=== PATIENT | female | born 1970 | race Two or more races ===

== ENCOUNTER 2021-09-08 10:03 | Outpatient (REF) | payer OTHER, SELFPAY ==
--- NOTE | ~2021-09-08 | MM_ITS ---
EXAMINATION: MM SCREENING DIGITAL BREAST TOMOSYNTHESIS, BILATERAL CLINICAL INFORMATION: Screening. Asymptomatic. The lifetime risk of breast cancer based on the Tyrer-Cuzick Model is 7%. COMPARISON: Mammography: 12/16/2018, 11/13/2017, 09/27/2016 TECHNIQUE: Digital breast tomosynthesis is performed in both the craniocaudal and mediolateral oblique views along with computer-aided detection (CAD). Synthesized 2D images are generated from the tomosynthesis. Additional exaggerated right CC view is provided. FINDINGS: There are scattered areas of fibroglandular density (ACR BI-RADS breast composition Category b). Breast tissue composition borders on heterogeneously dense. Parenchymal pattern is similar to prior studies. There is no developing density. No architectural abnormality. No abnormal calcifications on left. The axilla and skin contours are unremarkable. Right breast has fine punctate calcifications circumferentially arranged upper outer quadrant approximately 8.5 cm from nipple. Patient will be recalled for additional imaging. MM/MM tomosynthesis screening BI IMPRESSION: 1. Right: Punctate calcifications upper outer quadrant, possibly related to a cyst or nodule. 2. Left: No mammographic evidence of malignancy. ASSESSMENT: BI-RADS 0: Incomplete - Need Additional Imaging Evaluation RECOMMENDATION: 1. Additional views of the right breast (magnification CC, magnification ML). 2. Targeted ultrasound if warranted after review of the additional views. 3. Radiology department staff will contact the patient for additional imaging. This patient's information was entered into a reminder system with a target due date for their next mammogram.
== END 2021-09-08 10:04 | disposition home or self-care (01) ==
LOC: HO.MAMMO 10:03
PROVIDERS: PCP Student in an Organized Health Care Education/Training Program; Visit Provider Student in an Organized Health Care Education/Training Program
DX: Z12.31 Encounter for screening mammogram for malignant neoplasm of breast (principal)
CPT/HCPCS: 77063; 77067

== ENCOUNTER 2021-09-20 07:51 | Outpatient (REF) | payer OTHER, SELFPAY ==
--- NOTE | ~2021-09-20 | MM_ITS ---
EXAMINATION: MM DIAGNOSTIC DIGITAL MAMMOGRAPHY, RIGHT CLINICAL INFORMATION: Calcifications, COMPARISON: Mammography: 09/08/2021 and studies dating back to 06/28/2010 TECHNIQUE: Digital mammography is performed in the following views: Spot magnification views in craniocaudal and 90-degree mediolateral views. FINDINGS: The breasts are heterogeneously dense, which may obscure small masses (ACR BI-RADS breast composition Category c). There is persistence of a grouping of indeterminate calcifications about the upper outer aspect of the right breast for which stereotactic core biopsy is recommended. Results are discussed with the patient at time of visit. Above recommendation was called to referring provider's office by [facility] patient coordinator. MM/MM added views RT IMPRESSION: Indeterminate grouping of calcifications upper outer aspect of the right breast for which stereotactic core biopsy is recommended. ASSESSMENT: BI-RADS 4: Suspicious. RECOMMENDATION: Stereotactic core biopsy right breast.
== END 2021-09-20 07:52 | disposition home or self-care (01) ==
LOC: HO.MAMMO 07:51
PROVIDERS: Visit Provider Student in an Organized Health Care Education/Training Program
DX: R92.8 Other abnormal and inconclusive findings on diagnostic imaging of breast (principal)
CPT/HCPCS: 77065

== ENCOUNTER → 2021-09-27 08:25 | Outpatient (BNVA) | payer OTHER, SELFPAY | PROVIDERS: PCP Student in an Organized Health Care Education/Training Program; Visit Provider Surgery | DX: R92.1 Mammographic calcification found on diagnostic imaging of breast (principal) ==

== ENCOUNTER 2021-10-02 07:48 | Outpatient (REF) | payer OTHER, SELFPAY ==
--- NOTE | ~2021-10-02 | MM_ITS ---
EXAMINATION: STEREOTACTIC TOMOSYNTHESIS-GUIDED VACUUM-ASSISTED BREAST BIOPSY, RIGHT SPECIMEN RADIOGRAPH, RIGHT POST PROCEDURE DIGITAL MAMMOGRAM, RIGHT CLINICAL INFORMATION: Calcifications central upper outer right breast for tissue sampling. COMPARISON: Mammography 09/20/2021, 09/08/2021, 12/16/2018. TECHNIQUE/PROCEDURE: Informed consent was obtained from the patient after discussion of the benefits, risks, and alternatives to biopsy today. Patient appeared to understand. Gave opportunity for questions. Patient signed consent form. BIOPSY TABLE: [employer] Affirm Prone Biopsy System. LESION: Grouped calcifications central upper outer right breast, possibly vascular. LOCAL ANESTHESIA: 10 mL carbonated 1% lidocaine; 10 mL 1% lidocaine with epinephrine. DERMATOTOMY: Single skin greyson dermatotomy performed. NEEDLE: [employer] 9-gauge vacuum assisted core biopsy device. APPROACH: craniocaudal. TARGETING: Combination of digital breast tomosynthesis and stereotactic digital mammography used for targeting. CORES: 6. CLIP: [employer] T-shaped marker. SPECIMEN RADIOGRAPH: Specimen radiograph is taken in separate room using digital mammography. The index calcifications are in the excised cores. There are over 30 calcifications in the cores POST PROCEDURE UNILATERAL DIGITAL MAMMOGRAM: The post biopsy mammogram is performed in separate room using separate digital mammography equipment from the biopsy procedure. CC and ML views are obtained. There are scattered areas of fibroglandular density (breast composition category: b). The clip marker is in position. The calcifications are markedly decreased at the biopsy site. No gross hematoma. The patient tolerated the procedure well. No immediate complications. Home instructions reviewed with the patient. Final pathology results are pending. MM/MM stereotactic biopsy RT IMPRESSION: 1. Digital tomosynthesis-guided core biopsy right breast with clip placement. 2. Specimen radiograph taken and post procedure mammogram. There is satisfactory positioning of the biopsy clip. 3. Final pathology results pending. An addendum report will be issued.
[2021-10-02] MEDS: Lidocaine HCl 1 % 20 ML VIAL 5 ML SUBCUT (09:23)
[2021-10-02] MEDS: Sodium Bicarbonate 8.4% 50 MEQ/50 ML VIAL SUBCUT (09:25)
== END 2021-10-02 07:49 | disposition home or self-care (01) ==
LOC: HO.MAMMO 07:48
PROVIDERS: Visit Provider Surgery
DX: R92.1 Mammographic calcification found on diagnostic imaging of breast (principal); N62 Hypertrophy of breast; N60.31 Fibrosclerosis of right breast
CPT/HCPCS: 19081; 88305; A4648

== ENCOUNTER → 2021-10-08 12:49 | Outpatient (BNVA) | payer OTHER, SELFPAY | PROVIDERS: PCP Student in an Organized Health Care Education/Training Program; Visit Provider Surgery | DX: R92.1 Mammographic calcification found on diagnostic imaging of breast (principal) ==

== ENCOUNTER 2022-10-05 07:44 | Outpatient (REF) | payer OTHER, SELFPAY ==
--- NOTE | ~2022-10-05 | MM_ITS ---
EXAMINATION: MM SCREENING DIGITAL BREAST TOMOSYNTHESIS, BILATERAL CLINICAL INFORMATION: Screening. Asymptomatic. Benign right stereotactic biopsy 10/02/2021 (benign breast tissue with stromal fibrosis, usual ductal hyperplasia and calcifications. No atypia or malignancy). The lifetime risk of breast cancer based on the Tyrer-Cuzick Model is 7%. COMPARISON: Mammography: 10/02/2021, 09/20/2021, 09/08/2021, 12/16/2018 TECHNIQUE: Digital breast tomosynthesis is performed in both the craniocaudal and mediolateral oblique views along with computer-aided detection (CAD). Synthesized 2D images are generated from the tomosynthesis. FINDINGS: There are scattered areas of fibroglandular density (ACR BI-RADS breast composition Category b). There are no significant masses, abnormal calcifications, or other abnormalities. Parenchymal pattern is similar to prior studies. There is a biopsy clip marker posterior 11:30 right breast. The axilla and skin contours are unremarkable. MM/MM tomosynthesis screening BI IMPRESSION: No mammographic evidence of malignancy. ASSESSMENT: BI-RADS 1: Negative RECOMMENDATION: Routine annual mammography screening. This patient's information was entered into a reminder system with a target due date for their next mammogram.
== END 2022-10-05 07:45 | disposition home or self-care (01) ==
LOC: HO.MAMMO 07:44
PROVIDERS: PCP Student in an Organized Health Care Education/Training Program; Visit Provider Student in an Organized Health Care Education/Training Program
DX: Z12.31 Encounter for screening mammogram for malignant neoplasm of breast (principal)
CPT/HCPCS: 77063; 77067

== ENCOUNTER 2023-04-14 08:15 | Outpatient (REF) | payer OTHER, SELFPAY ==
[2023-04-14 15:04] LABS: Estimated Average Glucose 117 mg/dL; Hemoglobin A1c % 5.7 %
[2023-04-14 15:31] LABS: Alanine Aminotransferase 19 U/L (0-31); Albumin Level 3.7 g/dL (3.5-5.0); Alkaline Phosphatase 73 U/L (39-117); Anion Gap 14 (12-20); Aspartate Amino Transferase 18 U/L (5-31); Bilirubin Direct 0.2 mg/dL (0.0-0.5); Bilirubin Total 0.6 mg/dL (0.0-1.0); Blood Urea Nitrogen 14 mg/dL (9-16); Calcium 9.1 mg/dL (8.4-10.2); Carbon Dioxide 28 mmol/L (22-29); Chloride 102 mmol/L (96-108); Cholesterol 176 mg/dL; Estimated Glomerular Filt Rate > 60; Glucose Fasting 73 mg/dL (60-99); HDL Cholesterol 37 mg/dL; LDL Cholesterol Calculated 88 mg/dl; Potassium 4.4 mmol/L (3.3-5.1); Sodium 140 mmol/L (135-145); Total Protein 6.9 g/dL (6.5-8.0); Triglycerides 257 mg/dL
== END 2023-04-14 08:16 | disposition home or self-care (01) ==
LOC: HO.CHCLDS 08:15
PROVIDERS: Visit Provider Student in an Organized Health Care Education/Training Program
DX: I10 Essential (primary) hypertension (principal); R63.5 Abnormal weight gain; Z71.3 Dietary counseling and surveillance
CPT/HCPCS: 36415; 80048; 80061; 80076; 83036

== ENCOUNTER 2023-10-28 09:56 | Outpatient (REF) | payer OTHER, SELFPAY ==
--- NOTE | ~2023-10-28 | MM_ITS ---
EXAMINATION: MM SCREENING DIGITAL BREAST TOMOSYNTHESIS, BILATERAL CLINICAL INFORMATION: Screening. Asymptomatic. COMPARISON: Mammography: This study is compared with prior exams dating back to 2019. TECHNIQUE: Digital breast tomosynthesis is performed in both the craniocaudal and mediolateral oblique views along with computer-aided detection (CAD). Synthesized 2D images are generated from the tomosynthesis. FINDINGS: There are scattered areas of fibroglandular density (ACR BI-RADS breast composition Category b). There are no significant masses, abnormal calcifications, or other abnormalities. There is a tissue marker in the upper outer quadrant of the right breast from prior benign percutaneous biopsy. MM/MM tomosynthesis screening BI IMPRESSION: No mammographic evidence of malignancy. ASSESSMENT: BI-RADS BI-RADS 2 - Benign Findings RECOMMENDATION: Routine annual mammography screening. 1 year F/U This examination should not preclude the clinical evaluation of a suspicious palpable abnormality. This patient's information was entered into a reminder system with a target due date for their next mammogram.
== END 2023-10-28 09:57 | disposition home or self-care (01) ==
LOC: HO.MAMMO 09:56
PROVIDERS: PCP Student in an Organized Health Care Education/Training Program; Visit Provider Student in an Organized Health Care Education/Training Program
DX: Z12.31 Encounter for screening mammogram for malignant neoplasm of breast (principal)
CPT/HCPCS: 77063; 77067

== ENCOUNTER → 2023-10-28 10:15 | Outpatient (BNV) | payer OTHER, SELFPAY | PROVIDERS: PCP Student in an Organized Health Care Education/Training Program; Visit Provider Radiology Diagnostic Radiology | DX: Z12.31 Encounter for screening mammogram for malignant neoplasm of breast (principal) | CPT/HCPCS: 77063; 77067 ==

== ENCOUNTER 2024-02-04 14:49 | Outpatient (REF) | payer OTHER, SELFPAY ==
--- NOTE | ~2024-02-04 | US_ITS ---
EXAMINATION: US PELVIS CLINICAL INFORMATION: Fibroids LMP: No menses because of IUD COMPARISON: Pelvic ultrasound 11/16/2013 TECHNIQUE: Ultrasound of the pelvis is performed using both transabdominal and transvaginal transducers along with Doppler. Transvaginal imaging is performed due to inadequate visualization transabdominally. Technically limited study due body habitus. FINDINGS: Uterus: The uterus is enlarged and bulky. It is anteverted and measures 8.6 x 5.1 x 8.0 cm. 2 fibroids are appreciated includin.6 x 3.4 x 3.6 cm right fundal 4.4 x 3.4 x 3.9 cm left fundal The endometrial thickness is 1.3 cm The IUD appears in proper position. Adnexa: Right ovary measures 2.6 x 1.8 x 1.9 cm. Volume 4.8 mL. The left ovary is not seen. There is no free fluid within the cul-de-sac. US/US pelvic and transvaginal IMPRESSION: 1. Enlarged bulky fibroid uterus. 2. Normal right ovary. 3. The left ovary is not seen. 4. The IUD appears in proper position.
== END 2024-02-04 14:50 | disposition home or self-care (01) ==
LOC: HO.US 14:49
PROVIDERS: PCP Student in an Organized Health Care Education/Training Program; Visit Provider Advanced Practice Midwife
DX: D21.9 Benign neoplasm of connective and other soft tissue, unspecified (principal)
CPT/HCPCS: 76830; 76856

== ENCOUNTER 2024-03-29 16:15 | Outpatient (REF) | payer OTHER, SELFPAY ==
[2024-03-30 11:53] LABS: CT PCR NOT DETECTED (Not Detect.); NG PCR NOT DETECTED (Not Detect.)
== END 2024-03-29 16:16 | disposition home or self-care (01) ==
LOC: HO.LNP 16:15
PROVIDERS: Visit Provider Advanced Practice Midwife
DX: Z11.3 Encounter for screening for infections with a predominantly sexual mode of transmission (principal)
CPT/HCPCS: 87491; 87591

== ENCOUNTER 2024-04-15 09:30 | Outpatient (REF) | payer OTHER, SELFPAY ==
[2024-04-15 14:17] LABS: Estimated Average Glucose 120 mg/dL; Hemoglobin A1c % 5.8 % (<6.0)
[2024-04-15 14:25] LABS: Alanine Aminotransferase 25 U/L (0-31); Alkaline Phosphatase 86 U/L (39-117); Anion Gap 13 (12-20); Aspartate Amino Transferase 20 U/L (5-31); Bilirubin Direct 0.2 mg/dL (0.0-0.5); Bilirubin Total 0.5 mg/dL (0.0-1.0); Blood Urea Nitrogen 13 mg/dL (9-16); Calcium 9.4 mg/dL (8.4-10.2); Carbon Dioxide 28 mmol/L (22-29); Chloride 103 mmol/L (96-108); Cholesterol 183 mg/dL (<200); Estimated Glomerular Filt Rate > 60; Glucose Random 90 mg/dL (60-115); HDL Cholesterol 35 mg/dL (>40); LDL Cholesterol Calculated 117 mg/dL (<100); Potassium 3.8 mmol/L (3.3-5.1); Sodium 140 mmol/L (135-145); Total Protein 7.1 g/dL (6.5-8.0); Triglycerides 156 mg/dL (<150)
== END 2024-04-15 09:31 | disposition home or self-care (01) ==
LOC: HO.CHCLDS 09:30
PROVIDERS: Visit Provider Student in an Organized Health Care Education/Training Program
DX: I10 Essential (primary) hypertension (principal); E66.01 Morbid (severe) obesity due to excess calories; Z68.42 Body mass index [BMI] 45.0-49.9, adult; Z13.1 Encounter for screening for diabetes mellitus
CPT/HCPCS: 36415; 80048; 80061; 80076; 83036

== ENCOUNTER 2024-06-14 09:00 | Outpatient (AMB) | payer OTHER, SELFPAY ==
--- NOTE | 2024-06-14 09:09 | A.OFFVIS_ITS ---
VS Expanded 06/14/24 09:12 06/15/24 13:30 Height 5 ft 3 in 5 ft 3 in Weight 263 lb 0.183 oz 263 lb BMI 46.6 46.6 Intake Visit Reasons: Class 3 severe obesity/CONFIRMED Allergies lisinopril [LISINOPRIL] Allergy (Unknown, Verified 10/08/21 13:28) UNKNOWN metoprolol [METOPROLOL] Adverse Reaction (Unknown, Verified 10/08/21 13:28) HEADACHES oxycodone [From PERCOCET] Adverse Reaction (Unknown, Verified 10/08/21 13:28) NAUSEA & VOMITING Nutrition Presentation Details: Pt presents for MNT for obesity class 3 . Pt was referred by PCP Sean Hayes Pt reports having increased appetite in the evening. Reports having worked on diet modifications in the past but felt deprived Prefers home made meals Typical meal 8-9 am coffee, 2 sugars, 2 toasts with eggs/ham/cheese and fruit snacks on crackers, water or juice Lunch: rice/beans/chicken, water o juice or soda dinner 8-10 pm rice/beans/chicken physical activity: walking at work 6 hr daily [employer] smokin cig/d since age 16 BS Monitoring Most Recent Diabetes Results: Cholesterol 183 mg/dL (<200) 04/15/24 HDL Cholesterol 35 mg/dL (>40) L 04/15/24 Triglycerides 156 mg/dL (<150) H 04/15/24 Creatinine 0.63 mg/dL (0.5-1.4) 04/15/24 Blood Urea Nitrogen 13 mg/dL (9-16) 04/15/24 Sodium 140 mmol/L (135-145) 04/15/24 Potassium 3.8 mmol/L (3.3-5.1) 04/15/24 Chloride 103 mmol/L (96-108) 04/15/24 Carbon Dioxide 28 mmol/L (22-29) 04/15/24 Calcium 9.4 mg/dL (8.4-10.2) 04/15/24 AST 20 U/L (5-31) 04/15/24 ALT 25 U/L (0-31) 04/15/24 Total Protein 7.1 g/dL (6.5-8.0) 04/15/24 Albumin 4.0 g/dL (3.5-5.0) 04/15/24 EHZ-Kcbbwyz-Sl.Israel Equation Height: 5 ft 3 in Weight: 263 lb Resting Metabolic Rate: 1775.04 Calculated Activity Level: Mild Activity Calories Needed to Maintain Weight: 2440.68 Diagnosis Nutrition problem #1: food nutri know defi As related to (etiology) #1: diagnosis As evidenced by (sign/symptom) #1: high BMI (46.6 (06/22)) [facility] Medical History (Updated 09/27/21 @ 08:57 by Jose David Fontenot MD) Hypertension Morbid obesity Breast calcification, right Surgical History (Updated 09/27/21 @ 08:41 by TYESHA Diego) History of tubal ligation Family History Paternal Aunt Breast cancer Social History (Updated 09/27/21 @ 08:42 by TYESHA Diego) Patient Tobacco Use Status: Current everyday Tobacco user Female Reproductive History Menstrual Age of Menarche: 14 Assessment & Plan Assessment & Plan (1) Morbid obesity: Code(s): E66.01 - Morbid (severe) obesity due to excess calories Category: Medical Plan: Wt: 119.5 Kg ( 06/22 ) Est kcal needs as per MSJ: 2400 (40% carb, 30% protein/fat) Est fluid needs as per 25-30 ml/d: 3500 Est prot per day as per 1 g/kg bw: 119 Recommend fiber intake : 8-10 g per day and gradually increase to 25-28 g per day for women and 35-38 g for men or as tolerated Recommend sodium intake per day : less than 2300 mg Educated patient on: ( R = reviewed V = verbalizes understanding N/R = needs review N/A = not applicable * Food sources of carbohydrate, adequate serving sizes and its role in various health conditions: R * Differences between complex carbohydrates a simple carbohydrates, role of fiber in diet: R * Lean protein sources of foods: R * Differences between types of fats and role in diet (mono on saturated fat fatty acids, saturated fatty acids, trans fats): R V N/R * Food sources of sodium in salt and healthy modifications for heart health in kidney health: R V R/V * Vitamins and minerals: R V N/R * Healthy plate method concept: R * Physical activity: Benefits a precaution: R V N/R * Dietary prevention of Hyperglycemia: R Patient Instructions: Work on reduction of sugars in beverage (in coffee, sodas, juices ) Have sandwich with lettuce/tomato as your 9 pm meal for now Coding Level of Care Code Nutr Indiv Intake (12107) Diagnoses Morbid obesity E66.01 Time Spent (min) 30
[2024-06-14 09:12] VITALS: BMI 46.6
[2024-06-15 13:30] VITALS: BMI 46.6
== END 2024-06-14 10:09 | disposition home or self-care (01) ==
PROVIDERS: PCP Student in an Organized Health Care Education/Training Program; Visit Provider Dietitian, Registered
DX: E66.01 Morbid (severe) obesity due to excess calories (principal)

== ENCOUNTER → 2024-06-14 09:00 | Outpatient (BNVA) | payer OTHER, SELFPAY | PROVIDERS: PCP Student in an Organized Health Care Education/Training Program; Visit Provider Dietitian, Registered | DX: E66.01 Morbid (severe) obesity due to excess calories (principal); Z68.42 Body mass index [BMI] 45.0-49.9, adult; Z71.3 Dietary counseling and surveillance | CPT/HCPCS: 97802 ==

== ENCOUNTER 2024-07-26 08:24 | Outpatient (AMB) | payer OTHER, SELFPAY ==
--- NOTE | 2024-07-26 08:33 | A.OFFVIS_ITS ---
VS Expanded 07/26/24 08:35 Height 5 ft 3 in Weight 258 lb 3.2 oz BMI 45.7 Intake Visit Reasons: Severe obesity/CONFIRMED Allergies lisinopril [LISINOPRIL] Allergy (Unknown, Verified 10/08/21 13:28) UNKNOWN metoprolol [METOPROLOL] Adverse Reaction (Unknown, Verified 10/08/21 13:28) HEADACHES oxycodone [From PERCOCET] Adverse Reaction (Unknown, Verified 10/08/21 13:28) NAUSEA & VOMITING Nutrition Presentation Details: Pt presents for MNT f/u for obesity Pt is working on diet modifications reducing on sugars from beverages physical activity: 5 days a week walking (additional to walking at work, medical assistance/cleaning) Reports working on following healthy plate method at dinner, incorporating some fiber rich foods , trying new foods. Pt is asking for Wegovy prescription. The Pt was advised that prescriptions are provided by doctor's and Pt will need a referral to the crime data specialist for further evaluation. BS Monitoring Most Recent Diabetes Results: Cholesterol 183 mg/dL (<200) 04/15/24 HDL Cholesterol 35 mg/dL (>40) L 04/15/24 Triglycerides 156 mg/dL (<150) H 04/15/24 Creatinine 0.63 mg/dL (0.5-1.4) 04/15/24 Blood Urea Nitrogen 13 mg/dL (9-16) 04/15/24 Sodium 140 mmol/L (135-145) 04/15/24 Potassium 3.8 mmol/L (3.3-5.1) 04/15/24 Chloride 103 mmol/L (96-108) 04/15/24 Carbon Dioxide 28 mmol/L (22-29) 04/15/24 Calcium 9.4 mg/dL (8.4-10.2) 04/15/24 AST 20 U/L (5-31) 04/15/24 ALT 25 U/L (0-31) 04/15/24 Total Protein 7.1 g/dL (6.5-8.0) 04/15/24 Albumin 4.0 g/dL (3.5-5.0) 04/15/24 [facility] Medical History (Updated 09/27/21 @ 08:57 by Jose David Fontenot MD) Hypertension Morbid obesity Breast calcification, right Surgical History (Updated 09/27/21 @ 08:41 by TYESHA Diego) History of tubal ligation Family History Paternal Aunt Breast cancer Social History (Updated 09/27/21 @ 08:42 by TYESHA iDego) Patient Tobacco Use Status: Current everyday Tobacco user Female Reproductive History Menstrual Age of Menarche: 14 Assessment & Plan Assessment & Plan (1) Morbid obesity: Code(s): E66.01 - Morbid (severe) obesity due to excess calories Category: Medical Plan: Wt: 119.5 Kg ( 06/22 ), 117 (07/22) Est kcal needs as per MSJ: 2400 (40% carb, 30% protein/fat) Est fluid needs as per 25-30 ml/d: 3500 Est prot per day as per 1 g/kg bw: 119 Recommend fiber intake : 8-10 g per day and gradually increase to 25-28 g per day for women and 35-38 g for men or as tolerated Recommend sodium intake per day : less than 2300 mg Educated patient on: ( R = reviewed V = verbalizes understanding N/R = needs review N/A = not applicable * Food sources of carbohydrate, adequate serving sizes and its role in various health conditions: R * Differences between complex carbohydrates a simple carbohydrates, role of fiber in diet: R * Lean protein sources of foods: R * Differences between types of fats and role in diet (mono on saturated fat fatty acids, saturated fatty acids, trans fats): R V N/R * Food sources of sodium in salt and healthy modifications for heart health in kidney health: R V R/V * Vitamins and minerals: R V N/R * Healthy plate method concept: R * Physical activity: Benefits a precaution: R * Dietary prevention of Hyperglycemia: R Patient Instructions: Increase in fiber rich foods (add broccoli/spinach to the rice , add carrots, mushrooms to sauces and soups as examples ) Recommend referral to crime data specialist for further evaluation for obesity. Coding Level of Care Code Nutr Indiv Subseq (75866) Diagnoses Morbid obesity E66.01 Time Spent (min) 30
[2024-07-26 08:35] VITALS: BMI 45.7
== END 2024-07-26 09:07 | disposition home or self-care (01) ==
PROVIDERS: PCP Student in an Organized Health Care Education/Training Program; Visit Provider Dietitian, Registered
DX: E66.01 Morbid (severe) obesity due to excess calories (principal)

== ENCOUNTER → 2024-07-26 08:24 | Outpatient (BNVA) | payer OTHER, SELFPAY | PROVIDERS: PCP Student in an Organized Health Care Education/Training Program; Visit Provider Dietitian, Registered | DX: E66.01 Morbid (severe) obesity due to excess calories (principal); Z68.42 Body mass index [BMI] 45.0-49.9, adult; Z71.3 Dietary counseling and surveillance | CPT/HCPCS: 97803 ==

== ENCOUNTER 2024-11-05 07:33 | Outpatient (REF) | payer OTHER, SELFPAY ==
--- OUTSIDE RECORDS SUMMARY | 2024-11-05 07:35 | XMS_ITS | Encounter Summary ---
Author Organization [employer] Address [address] [place] [address] Care Team Providers Care Post Tensioning Ironworker Helper Name Role Phone Tona Hayes MD Primary Care Provider [phone] Encounter Details Date Type Department Care Team ([facility] st Contact Info) Description 05/27/2023 Orders Only [facility] [address] [place] [address] [phone] Sanjiv Paez MD [address] [place] [address] [phone] Social History Tobacco Use Types Packs/Day Years Used Date Smoking Tobacco: Every Day Cigarettes 0.5 0.5 Passive Smoke Exposure: Past Smokeless Tobacco: Never Alcohol Use Standard Drinks/Week Comments Defer 0 (1 standard drink = 0.6 oz pur e alcohol) Depression Answer Date Recorded Patient Health Questionnaire-9 Score 0 04/07/2023 Depression Answer Date Recorded Patient Health Questionnaire-2 Score 0 04/07/2023 Comments Unknown Sex and Gender Information Value Date Recorded Sex Assigned at Female 07/29/2022 10:15 AM EDT Legal Sex Female 10:15 AM EDT Gender Identity Female 07/29/2022 10:15 AM EDT Sexual Orientation Straight 07/29/2022 10 :15 AM EDT documented as of this encounter Plan of Treatment Not on file documented as of this encounter Visit Diagnoses Not on filedocumented in this encounter Additional Health Concerns Assessment Noted Time PHQ-9 Depression Total Score: 0 04/07/20 23 9:14 AM EDT documented as of this encounter Care Teams Post Tensioning Ironworker Helper Relationship Specialty Start Date End Date Tona Hayes MD [address] [place] [id number] PCP - General Family Medicine 08/19/12 documented as of this encounter
--- OUTSIDE RECORDS SUMMARY | 2024-11-05 07:35 | XMS_ITS | Encounter Summary ---
Author Organization [employer] Address [address] [place] [address] Care Team Providers Care Train Crew Member Name Role Phone Tona Hayes MD Primary Care Provider [phone] Reason for Visit * Reason Comments Med Refill Encounter Details Date Type Department Care Team (Late st Contact Info) Description 09/02/2022 Refill [facility] [address], [place] [phone] Tona Hayes MD [address] [place], [place] [phone] Social History Tobacco Use Types Packs/Day Years Used Date Smoking Tobacco: Never Assessed Comments Unknown Sex and Gender Information Value Date Recorded Sex Assigned at Female 07/29/2022 10:15 AM EDT Legal Sex Female 10:15 AM EDT Gender Identity Female 07/29/2022 10:15 AM EDT Sexual Orientation Straight 07/29/2022 10 :15 AM EDT COVID-19 Exposure Response Date Recorded In the last 10 days, have yo u been in contact with someone who was confirmed or suspected to have Coronavirus/COVID-19? No / Unsure 08/30/2022 2:14 PM EST documented as of this encounter Plan of Treatment Not on file documented as of this encounter Visit Diagnoses Not on filedocumented in this encounter Care Teams Train Crew Member Relationship Specialty Start Date End Date Tona Hayes MD [address] [place] [phone] PCP - General Family Medicine 08/19/12 documented as of this encounter
--- OUTSIDE RECORDS SUMMARY | 2024-11-05 07:35 | XMS_ITS | Encounter Summary ---
Author Organization [employer] Address [address] [place] [address] Care Team Providers Care Character Impersonator Name Role Phone Tona Hayes MD Primary Care Provider Reason for Visit * Reason Onset Date Comments Prior Authorization 10/08/2024 Encounter Details Date Type Department Care Team ([facility] st Contact Info) Description 10/08/2024 Telephone [facility] PEDS [address] [place] [address] Tona Hayes MD [address] [place] [address] Prior Authorization Social History Tobacco Use Types Packs/Day Years Used Date Smoking Tobacco: Every Day Cigarettes 0.5 0.5 Passive Smoke Exposure: Current Smokeless Tobacco: Never Alcohol Use Standard Drinks/Week Comments Defer 0 (1 standard drink = 0.6 oz pur e alcohol) Alcohol Answer Date Recorded Frequency of Alcohol Consumption Not on file 04/15/2024 Average Number of Drinks Not on file 024 Frequency of Binge Drinking Not on file 03/29 Score 0 04/15/2024 Depression Answer Date Recorded Patient Health Questionnaire-9 Score 0 04/15/2024 Patient Health Questionnaire-9 Score 0 04/15/2024 Last PHQ-9: Questionnaire Data Not on file 0 04/15/2024 Housing Stability Answer Date Recorded What is your housing situation today? I have balwinder mclain 04/09/[address] you li ve. Do you have problems with any of the following? None of the above 04/09/2024 Food Insecurity Answer Date Recorded Within the past 12 months, y ou worried that your food would run out before you got money to buy more: Never True 04/09/2024 Within the past 12 months,th e food you bought just didn't last and you didn't have enough money to get more: Never True 08/2024 Transportation Answer Date Recorded In the past 12 months, has l ack of transportation kept you from medical appts, meetings, work or from getting things needed for daily living? No 04/09/2024 Utilities Answer Date Recorded In the past 12 months, has t he electric, gas, oil or water company threatened to shut off services in your home? No 04/09/2024 Depression Answer Date Recorded Patient Health Questionnaire-2 Score 0 04/15/2024 Internet Access Answer Date Recorded Internet Access Q1 Yes 05/31/2024 Internet Access Q2 Not on file 05/31/2024 Comments No Sex and Gender Information Value Date Recorded Sex Assigned at Female 07/29/2022 10:15 AM EDT Legal Sex Female 10:15 AM EDT Gender Identity Female 07/29/2022 10:15 AM EDT Sexual Orientation Straight 07/29/2022 10 :15 AM EDT documented as of this encounter Miscellaneous Notes * Telephone Encounter - Khushboo Connolly LPN - 10/08/2024 11:29 AM EST Pa generated and faxed to pt insurance ----- Message from Maritza Chowdhury sent at 10/07/2024 3:12 PM EST ----- Please generate PA for john Nunez! * Telephone Encounter - Khushboo Connolly LPN - 10/08/2024 11:29 AM EST ----- Message from Maritza Chowdhury sent at 10/07/2024 3:12 PM EST ----- Please generate PA for Enrique, thanks! documented in this encounter Plan of Treatment Not on file documented as of this encounter Visit Diagnoses Not on filedocumented in this encounter Additional Health Concerns Assessment Noted Time PHQ-9 Depression Total Score: 0 04/15/20 24 9:20 AM EDT documented as of this encounter Care Teams Character Impersonator Relationship Specialty Start Date End Date Tona Hayes MD [address] [place] [id number] PCP - General Family Medicine 08/19/12 documented as of this encounter
--- OUTSIDE RECORDS SUMMARY | 2024-11-05 07:35 | XMS_ITS | Clinical Summary ---
Author Organization [employer] Address [address] [facility] 7[address] [place] [address] Care Team Providers Care Drupal Architect Name Role Phone Tona Hayes MD Primary Care Provider [phone] Allergies Active Allergy Reactions Criticality Noted Date Comments Acetaminophen 03/26/2012 Other reaction(s): can not tolerate Lisinopril Cough 11/23/2014 Metoprolol 11/23/2014 Urofollitropin 01/21/2023 Oxycodone 03/26/2012 Other reaction(s): can not tolerate Oxycodone-Acetaminophen 01/21/2023 Medications hydrOXYzine HCl (Atarax) 25 MG tabletIndication s:Anxiety Take 1 tablet (25 mg) by mouth if needed at bedtime for itching. 30 tablet 3 2 Active fluticasone (Flonase Allergy Relief) 50 MCG/ACT nasal sprayIndications :Nasal congestion Administer 1 spray into each nostril in the morning. Shake gently. Before first use, prime pump. After use, clean tip and replace cap. 16 g 3 3 Active triamcinolone (Nasacort Allergy 24HR) 55 MCG/ACT nasal inhaler use in each nostril BID 0 Active fluticasone (Flovent HFA) 110 MCG/ACT inhaler inhale 2 puff by inhalation route 2 times every day 12 g 11 3 Active albuterol 108 (90 Base) MCG/ACT inhaler Inhale 2 puffs every 4 (four) hours if needed for wheezing or shortness of breath. 18 g 11 3 Active Oyster Shell Calcium + D3 500-10 MG-MCG tabletIndication s:Osteoporosis, unspecified osteoporosis type, unspecified pathological fracture presence TAKE 1 TABLET BY MOUTH EVERY DAY 90 tablet 1 3 Active cyclobenzaprine (Flexeril) 5 MG tablet Take 1 tablet (5 mg) by mouth if needed in the morning, at noon, and at bedtime for muscle spasms for up to 40 doses. 40 tablet 3 Active sertraline (Zoloft) 50 MG tablet Take 1 tablet (50 mg) by mouth in the morning. 90 tablet 3 4 Active triamterene-hydr ochlorothiazide (Maxzide-25) 37.5-25 MG tablet Take 1 tablet by mouth in the morning. 90 tablet 3 4 Active omeprazole (PriLOSEC) [address] capsule Take 1 capsule (20 mg) by mouth before breakfast. Do not crush or chew. 90 capsule 3 4 Active ibuprofen 800 MG tabletIndication s:Pain, unspecified TAKE 1 TABLET BY MOUTH THREE TIMES DAILY WITH FOOD NEEDED FOR PAIN 30 tablet 3 4 Active loratadine (Claritin) 10 MG tablet TAKE 1 TABLET BY MOUTH DAILY IN THE MORNING 90 tablet 4 Active telmisartan (MIcarDIS) 20 MG tablet TAKE 1 TABLET BY MOUTH EVERY MORNING 90 tablet 3 5 Active Tirzepatide-Weig ht Management (Zepbound) 2.5 MG/0.5ML solution auto-injectorInd ications:Obesity Inject 0.5 mL (2.5 mg) under the skin 1 (one) time per week. 2 mL 2 5 025 Active Semaglutide-Weig ht Management (Wegovy) 0.25 MG/0.5ML solution auto-injector Use once a week 0.5 mL 3 4 025 Discontin ued(Thera py completed ) predniSONE (Deltasone) 20 MG tablet Take 2 tablets (40 mg) by mouth Once per day for 5 days. 10 tablet 4 025 Discontin ued(Thera py completed ) Active Problems Problem Noted Date Diagnosed Date Obstructive sleep apnea 10/07/2024 Overview (10/07/2024): - 09/16/24 -sleep study revealed a severe degree of obstructive sleep apnea. Prediabetes 10/07/2024 Overview (10/07/2024): Lab Results Component Value Date HGBA1C 5.8 04/15/2024 HGBA1C 5.7 04/14/2023 HGBA1C 5.7 (H) 06/27/2021 -Encouraged lifestyle interventions Obesity 10/07/2024 Assessment & Plan (10/07/2024 3:07 PM EST): Reviewed indications for pharmacotherapy with patient, which is treatment for person w/ obesity or a patient with a BMI > 27 w/ CV risk factors who have failed lifestyle modifications alone. These are always prescribed in combination with ongoing lifestyle modification; and will be titrated up from the lowest dose Comorbidities: LEONID, prediabetes, hypertension Plan: start Zepbound. Reviewed med safety and side effects. No contraindications identified. 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 Gastroesophageal reflux disease 11/23/2014 Benign hypertension 08/19/2012 Assessment & Plan (10/07/2024 3:12 PM EST): - Elevated in office, although reports has not taken blood pressure medications yet - Continue current therapy - Follow-up if home blood pressure readings are elevated -Smoking cessation advised Tobacco dependence syndrome 08/19/2012 Depressive disorder 08/19/2012 Encounters Date Type Department Care Team Description 11/04/2024 Refill [facility] [address] [facility] [place] [address] Tona Hayes MD Osteoporosis, unspecified osteoporosis type, unspecified pathological fracture presence 10/08/2024 Telephone [facility] [address] [place] [address] Tona Hayes MD Prior Authorization 10/04/2024 2:30 PM EST Office Visit [facility] [address] [facility] [place] [address] Maritza Chowdhury, BILLY Class 3 severe obesity with serious comorbidity and body mass index (BMI) of 45.0 to 49.9 in adult, unspecified obesity type (CMS/[facility]) (Primary Dx); Obstructive sleep apnea; Prediabetes; Benign hypertension 10/04/2024 Travel 09/30/2024 Refill [facility] [address] [place] [address] Tona Hayes MD 09/24/2024 Orders Only [facility] [address] [place] [address] Sanjiv Paez MD 09/16/2024 1:00 PM EST Office Visit [facility] ADULT DENT[facility] [address] [place] [address] Estevan, Griselda Dental plaque (Primary Dx); Dental calculus 08/23/2024 Refill [facility] [address] [place] [address] Tona Hayes MD 08/20/2024 1:30 PM EST Office Visit [facility] [address] [place] [address] Eliecer, Nabila, OD Retinal hemorrhage of right eye (Primary Dx); Hypertensive retinopathy of both eyes 08/20/2024 Travel 08/16/2024 Refill [facility] [address] [place], [place] [phone] Tona Hayes MD Pain, unspecified from Last 3 Months Immunizations Name Administration Dates Next Due HepB-CpG 07/04/2023,06/03/2023 Influenza Injectable Quadriv alant Preservative Free IIV4 MDCK 06/19/2023,06/13/2022,06/14/2021,2019 Influenza injectable quadriv alent IIV4 with preservative 06/09/2019,06/10/2018 Influenza, IIV3, injectable 06/10/2012 Influenza, seasonal, injecta ble, preservative free 06/10/2024 Pfizer Covid-19 Vaccine 12+ 06/27/2023 Pfizer Covid-19 Vaccine 12+ Bivalent 08/30/2022 TD (adult), 2 Lf tetanus tox oid, preservative free, adsorbed 06/28/2008 Tdap 10/30/2021,10/29/2011 Zoster, Recombinant 08/05/2023,06/03/2023 Family History Medical History Relation Name Comments Breast cancer Father's Sister Diabetes Mother Lung cancer Mother's Sister Relation Name Status Comments Father's Sister Mother Mother's Sister Social History Tobacco Use Types Packs/Day Years Used Date Smoking Tobacco: Every Day Cigarettes 0.5 0.5 Passive Smoke Exposure: Current Smokeless Tobacco: Never Tobacco Cessation:Ready to Q uit: Not Asked; Counseling Given: Not Answered Alcohol Use Standard Drinks/Week Comments Defer 0 [...] Orientation Straight 07/29/2022 10 :15 AM EDT Last Filed Vital Signs Vital Sign Reading Time Taken Comments Blood Pressure 141/82 10/04/2024 1:53 PM EST Pulse 74 10/04/2024 1:53 PM EST Temperature 37.1 ??C (98.8 ??F) 10/04/2024 1:53 PM ES T Respiratory Rate 22 10/04/2024 1:53 PM EST Oxygen Saturation 97% 10/04/2024 1:53 PM EST Inhaled Oxygen Concentration - - Weight 120 kg (264 lb 6 oz) 10/04/2024 1:[address] Height 160 cm (5' 3 ) 10/04/2024 1:53 PM EST Body Mass Index 46.83 10/04/2024 1:53 PM EST Plan of Treatment Health Maintenance Due Date Last Done Comments CT Colonography 1972 Colonoscopy 1972 Colorectal Cancer Screening 1972 FIT DNA/Cologuard 1972 FIT 1972 FOBT 1972 HIV Screening 1972 Sigmoidoscopy 1972 Family Planning (PISQ) 1987 Hepatitis C Screening 1990 Hepatitis A Vaccines (1 of 2 - Risk 2-dose series) 1991 Pneumococcal Vaccine: 50+ Years (1 of 2 - PCV) 1991 Dental Prophylaxis 03/05/2014 09/03/2013 Dental Oral Exam 04/22/2014 10/22/2013, 07/10/2012 Dental X-Ray: Bitewings 09/04/2014 09/03/2013, 05/19 Dental X-Ray: Full Mouth 05/20/2015 05/19/2012 COVID-19 Vaccine ( season) 2024 06/27/2023, 08/30/2022, 08/17/2021, Additional history exists SDOH Screening 04/09/2025 04/09/2024 Alcohol/Substance Use Screening 04/15/2025 04/15/2024 Depression Screening 04/15/2025 04/15/2024, 04/15/20 24 Diabetes: Hemoglobin A1C 04/15/2025 024, 04/14/2023, 06/27/2021 Tobacco Screening 10/04/2025 10/04/2024 Mammogram 10/28/2025 10/28/2023, 03/2023, 09/20/2021, Additional history exists Cervical Cancer Screening 01/22/2028 HPV/Cotest 01/22/2028 01/21/2023, 05/18/2019 Pap Smear 01/22/2028 01/21/2023, 05/18/2019 Lipid Panel 04/15/2029 04/15/2024, 03/29, 04/17/2022, Additional history exists DTaP/Tdap/Td Vaccines (3 - Td or Tdap) 10/30/2031 10/30/2021, 10/29/2011, 06/28/2008 RSV Patients and Patients Aged 60 years or older (1 - 1-dose 75+ series) 2047 Hepatitis B Vaccines Completed 07/04/2023, 06/03/20 Zoster Vaccines Completed 08/05/2023, 06/03/2023 Influenza Vaccine Completed 06/10/2024, , 06/13/2022, Additional history exists HIB Vaccines Aged Out No longer eligi ble based on patient's age to complete this topic HPV Vaccines Aged Out No longer eligi ble based on patient's age to complete this topic IPV Vaccines Aged Out No longer eligi ble based on patient's age to complete this topic Meningococcal Vaccine Aged Out No erik essie eligible based on patient's age to complete this topic RSV under 20 months Aged Out No longe r eligible based on patient's age to complete this topic Rotavirus Vaccines Aged Out No longer eligible based on patient's age to complete this topic Procedures Procedure Name Priority Date/Time Associated Diagnosis Comments EMPLOYEE ADULT PROPHYLAXIS Routine 09/16/2024 1:00 PM EST Dental plaque Dental calculus FUNDUS PHOTOS - OU - BOTH EYES Routine 08/20/2024 4:22 PM EST Hypertensive retinopathy of both eyes HEMOGLOBIN A1C Routine 04/15/2024 12:00 AM EDT Benign hypertension Class 3 severe obesity with serious comorbidity and body mass index (BMI) of 45.0 to 49.9 in adult, unspecified obesity type ([facility]) LIPID PANEL, STANDARD Routine 04/15/2024 12:00 AM EDT Benign hypertension Class 3 severe obesity with serious comorbidity and body mass index (BMI) of 45.0 to 49.9 in adult, unspecified obesity type (CMS/HCC) BI MAMMOGRAM SCREENING TOMOSYNTHESIS BILATERAL Routine 10/28/2023 10:21 AM EST IMAGE-GUIDED PAP W/AGE BASED SCR PROTOCOLS Routine 01/21/2023 9:43 AM EDT Cervical cancer screening PERIODIC ORAL EVALUATION - ESTABLISHED PATIENT Routine 10/22/2013 12:00 AM EST PROPHYLAXIS - ADULT Routine 09/03/2013 1 2:00 AM EST BITEWINGS - 4 RADIOGRAPHIC IMAGES Routine 09/03/2013 12:00 AM EST DIAGNOSTIC - DIAGNOSTIC IMAGING - INTRAORAL - COMPREHENSIVE SERIES OF RADIOGRAPHIC IMAGES Routine 05/19/2012 12:00 AM EDT from Last 3 Months or Most Recently Relevant to Health Maintenance Results * Fundus Photos - OU - Both Eyes (08/20/2024 4:22 PM EST) Kandice EliecerNabila, OD - 08/20/2024 4:22 PM EST Right Eye Progression has improved. Disc findings include normal observations. Macula findings include normal observations. Vessel findings include tortuous vessels. Periphery findings include normal observations. Left Eye Progression has been stable. Disc findings include normal observations. Macula findings include normal observations. Vessel findings include tortuous vessels. Periphery findings include normal observations. Notes Impression/Plan: Resolution of heme in right eye. Stable hypertensive changes in both eyes. Will monitor at his next exam in 04/2025. us Nabila Gonzáles OD OPHTH PHOTOGRAPHY Edited Resu lt - Final * Hemoglobin A1c (04/15/2024 12:00 AM EDT) Hemoglobin A1c 5.8 <6.0 % [facility] Comment:Hemoglobin A1C Refer ence Range Adults: 4.8 - 6.0 % Non diabetic: < 6.0 % Goal: < 7.0 %Additional Action Suggested: > 8.0 %Note: Hemoglobin A1c results are invalid for patients with abnormal amounts of HbF. Blood transfusions may impact the HbA1c concentration in the patient sample. Estimated Average Glucose 120 mg/dL [facility] Comment:eAG = Estimated ave rage glucose which is %A1C expressed asaverage glucose, using the formula of the [id number] Glucose study (ADAG), Diabetes Care, Vol.31,#8,Apr. 2007 Blood Venous blood specimen / Unknown 04/15/2024 04/15/2024 us Tona Hayes MD LAB BLOOD ORDERABLES Final Resul t Performing Organization Address City/[facility] Co de Phone Number [facility] [address] [place] [address] [phone] * (ABNORMAL) Lipid Panel, Standard (04/15/2024 12:00 AM EDT) Triglycerides 156(H) <150 mg/dL [facility] Comment:Desirable Triglyceri de: less than 150 mg/dLBorderline High Triglyceride 150-199 mg/dLHigh Triglyceride: 200-499 mg/dLVery High Triglyceride: greater than or equal to 5OO mg/dL Cholesterol 183 <200 mg/dL [facility] Comment:Desirable Cholestero l: less than 200 mg/dLBorderline High Cholesterol: 200-239 mg/dLHigh Cholesterol: greater than 239 mg/dL LDL Cholesterol Calculated 117(H) <100 mg/dL [facility] Comment:Desirable LDL: less than 100 mg/dLNear Optimal/Above Optimal LDL: 110- 129 mg/dLBorderline High LDL: 130-159 mg/dLHigh LDL: 160-189 mg/dLVery High LDL: greater than or equal to 190 mg/dL HDL Cholesterol 35(L) >40 mg/dL [facility] Comment:Desirable HDL: great er than 40 mg/dL Note: This HDL assay may give artificially low results in patients with liver disease. Blood Venous blood specimen / Unknown 04/15/2024 04/15/2024 us Tona Hayes MD LAB BLOOD ORDERABLES Final Resul t [facility] [address] [place] [phone] [phone] * BI Mammogram Screening Tomosynthesis Bilateral (10/28/2023 10:21 AM EST) Anatomical Region Laterality Modality Breast Bilateral Mammography 10/28/2023 10:2 1 AM EST Narrative 11/20/2023 6:45 AM EST ? [facility] [place] ? [address] ?[place] [address] ? Mammography Report ? Signed ? Patient: Patrice,Chanel ?MR#: [id number] ?? [id number] ? : 1970 ?Acct:[id number] ? Age/Sex: 53 / F ?ADM Date: 10/28/23 ? Loc: HO.MAMMO ? Attending Dr: Tona S Freddy MD ? Ordering Physician: Freddy,Tona Starr MD ?Results: 2Benign ?? Findings ? Date of Service: 10/28/23 ?Follow Up: 1 Year From Orig ?? inal Mammogram ? Procedure(s): MM tomosynthesis screening BI ?? Accession Number(s): [id number] ? cc: Tona Hayes MD ? EXAMINATION: ?? MM SCREENING DIGITAL BREAST TOMOSYNTHESIS, BILATERAL ? CLINICAL INFORMATION: ? Screening. Asymptomatic. ? COMPARISON: ?? Mammography: This study is compared with prior exams dating back to ?? 2019. ? TECHNIQUE: ?? Digital breast tomosynthesis is performed in both the craniocaudal and ?? mediolateral oblique views along with computer-aided detection (CAD). ?? Synthesized 2D images are generated from the tomosynthesis. ? FINDINGS: ?? There are scattered areas of fibroglandular density (ACR BI-RADS breast ?? composition Category b). ? There are no significant masses, abnormal calcifications, or other ?? abnormalities. ? There is a tissue marker in the upper outer quadrant of the right ?? breast from prior benign percutaneous biopsy. ? MM/MM tomosynthesis screening BI ?? IMPRESSION: ?? No mammographic evidence of malignancy. ? ASSESSMENT: ? BI-RADS BI-RADS 2 - Benign Findings ? RECOMMENDATION: ?? Routine annual mammography screening. ? 1 year F/U ? This examination should not preclude the clinical evaluation of a ?? suspicious palpable abnormality. ? This patient's information was entered into a reminder system with a ?? target due date for their next mammogram. ? Dictated By: ?Ashli Stack MD ? Signed By: ?<Electronically signed by Ashli Stack MD in OV> ? 11/20/23 0641 ? DD/ 1021 ? TD/TT: ? Desk Reporter: ? Procedure Note [place], Image - 11/20/2023 [facility] [address] [place] [address] Mammography Report Signed Patient: Francisco J Ibrahim#: [id number] : 1970Acct:[id number] Age/Sex: 53 / FADM Date: 10/28/23 Loc: [facility] Attending Dr: Tona Hayes MD Ordering Physician: Tona Hayesesults: 2Benign Findings Date of Service: 10/28/23Follow Up: 1 Year From Orig inal Mammogram Procedure(s): MM tomosynthesis screening BI Accession Number(s): [id number] cc: Tona Hayes MD EXAMINATION: MM SCREENING DIGITAL BREAST TOMOSYNTHESIS, BILATERAL CLINICAL INFORMATION: Screening. Asymptomatic. COMPARISON: Mammography: This study is compared with prior exams dating back to 2019. TECHNIQUE: Digital breast tomosynthesis is performed in both the craniocaudal and mediolateral oblique views along with computer-aided detection (CAD). Synthesized 2D images are generated from the tomosynthesis. FINDINGS: There are scattered areas of fibroglandular density (ACR BI-RADS breast composition Category b). There are no significant masses, abnormal calcifications, or other abnormalities. There is a tissue marker in the upper outer quadrant of the right breast from prior benign percutaneous biopsy. MM/MM tomosynthesis screening BI IMPRESSION: No mammographic evidence of malignancy. ASSESSMENT: BI-RADS BI-RADS 2 - Benign Findings RECOMMENDATION: Routine annual mammography screening. 1 year F/U This examination should not preclude the clinical evaluation of a suspicious palpable abnormality. This patient's information was entered into a reminder system with a target due date for their next mammogram. Dictated By: Ashli Stack MD Signed By: <Electronically signed by Ashli Stack MD in OV> 11/20/23 0641 DD/ 1021 TD/TT: Desk Reporter: Tona Hayes MD IM BI PROCEDURES Edited Result - Final * Image-Guided Pap with Age-Based Screening Protocols (01/21/2023 9:43 AM EDT) Comment [facility] Comment: This order for age-based cervical cancer and STI screening follows ACOG guidelines(PB 168, 140, FLZ414). See individual assays for performing site location. Clinical Information: None given [facility] LMP: NONE GIVEN [facility] Prev. PAP: NONE GIVEN [facility] Prev. BX: NONE GIVEN [facility] SOURCE: None given [facility] Statement Of Adequacy: [facility] [employer] Comment: Satisfactory for evaluation. Endocervical/transformation zone component present. Interpretation/ Result: Negative for intraepithelial lesion or malignancy. [facility] COMMENT: This Pap test has been evaluated with computer assisted technology. [employer]: [employer] Comment: SXA, CT(ASCP) CT screening location: [address] ??[id number] (Always Message) Partly Comment: EXPLANATORY NOTE: The Pap is a screening test for cervical cancer. It is not a diagnostic test and is subject to false negative and false positive results. It is most reliable when a satisfactory sample, regularly obtained, is submitted with relevant clinical findings and history, and when the Pap result is evaluated along with historic and current clinical information. HPV nRNA E6/E7 Not Detected Not Detected Partly Comment: Methodology: Guest Experience Representative-Mediated Amplification This assay detects E6/E7 viral messenger RNA (mRNA) from 14 high-risk HPV types (16,18,31,33,35,39,45,51,52,56,58,59,66,68). Cervical sources are required for HPV testing. If a vaginal source from a patient who has had a total hysterectomy with removal of cervix was submitted, please contact the testing laboratory for alternative testing options. For additional information, please refer to http://education.[employer]/faq/VQL795d7 (This link if provided for information/ educational purposes only.) Cytology specimen container (physical object) 01/21/2023 9:43 AM EDT 01/22/2023 6:22 AM EDT Adeola MADERA LAB BLOOD ORDERABLES Jannet l Result [address], [place] [address] [employer] [address] [place] [phone] from Last 3 Months or Most Recently Relevant to Health Maintenance Insurance [id number] [id number] DENTAL - HSN PARTIAL (MEDICAID) Care Teams Drupal Architect Relationship Specialty Start Date End Date Tona Hayes MD [address] [place] [phone] PCP - General Family Medicine 08/19/12
--- OUTSIDE RECORDS SUMMARY | 2024-11-05 07:35 | XMS_ITS | Encounter Summary ---
Author Organization [employer] Address [address] [facility] [address] [place] [address] Care Team Providers Care Humanities Teacher Name Role Phone Tona Hayes MD Primary Care Provider [phone] Encounter Details Date Type Department Care Team (Late st Contact Info) Description 11/13/2022 Orders Only [facility] [address] [place], [place] [phone] Sanjiv Paez MD [address] [place], [place] [phone] Nasal congestion (Primary Dx) Social History Tobacco Use Types Packs/Day Years [...] documented as of this encounter Visit Diagnoses Diagnosis Nasal congestion- Primary Other diseases of nasal cavity and sinuses documented in this encounter Care Teams Humanities Teacher Relationship Specialty Start Date End Date Tona Hayes MD [address] [place], [place] [phone] PCP - General Family Medicine 08/19/12 documented as of this encounter
--- OUTSIDE RECORDS SUMMARY | 2024-11-05 07:35 | XMS_ITS | Encounter Summary ---
Author Organization [employer] Address [address] [facility] [address] [place] [address] Care Team Providers Care Metal Cut Off Saw Tender Name Role Phone Tona Hayes MD Primary Care Provider [phone] Reason for Visit * Reason Comments Med Refill Encounter Details Date Type Department Care Team ([facility] st Contact Info) Description 11/04/2024 Refill [facility] [address] [place], [place] [phone] Tona Hayes MD [address] [place] [address] Osteoporosis, unspecified osteoporosis type, unspecified pathological fracture presence Social History Tobacco Use Types Packs/Day Years [...] as of this encounter Visit Diagnoses Diagnosis Osteoporosis, unspecified osteoporosis type, unspecified pathological fracture presence documented in this encounter Additional Health Concerns Assessment Noted Time PHQ-9 Depression Total Score: 0 04/15/20 24 9:20 AM EDT documented as of this encounter Care Teams Metal Cut Off Saw Tender Relationship Specialty Start Date End Date Tona Hayes MD [address] [place] [phone] PCP - General Family Medicine 08/19/12 documented as of this encounter
== END 2024-11-05 07:34 | disposition home or self-care (01) ==
LOC: HO.MAMMO 07:33
PROVIDERS: PCP Student in an Organized Health Care Education/Training Program; Visit Provider Student in an Organized Health Care Education/Training Program
DX: Z12.31 Encounter for screening mammogram for malignant neoplasm of breast (principal)

== ENCOUNTER → 2024-11-05 08:00 | Outpatient (BNV) | payer OTHER, SELFPAY | PROVIDERS: PCP Student in an Organized Health Care Education/Training Program; Visit Provider Internal Medicine | DX: Z12.31 Encounter for screening mammogram for malignant neoplasm of breast (principal) | CPT/HCPCS: 77063; 77067 ==

== ENCOUNTER 2024-12-14 11:55 | Outpatient (REF) | payer OTHER, SELFPAY ==
--- NOTE | ~2024-12-14 | MM_ITS ---
EXAMINATION: MM DIAGNOSTIC DIGITAL MAMMOGRAPHY, LEFT CLINICAL INFORMATION: Call back from screening for grouped calcifications in the upper outer left breast. History of benign right stereotactic core needle biopsy for calcifications in 2021. COMPARISON: Mammography: [facility] on PACS. TECHNIQUE: Digital mammography is performed in craniocaudal and mediolateral oblique views along with computer-aided detection (CAD). FINDINGS: The breasts are heterogeneously dense, which may obscure small masses (ACR BI-RADS breast composition Category c). Grouped punctate calcifications in the upper outer quadrant on magnification views some may have been seen on prior images in 2023,2022. No suspicious masses or other abnormal findings. Results are provided to the patient at time of visit by the technologist. MM/MM added views LT IMPRESSION: Grouped punctate palpitations in the upper outer quadrant. 6 month follow-up versus stereotactic core needle biopsy with to the patient. The patient for six-month follow-up with magnification views at this time. ASSESSMENT: BI-RADS BI-RADS 3 - Probably benign finding(s) - 6 month follow-up suggested RECOMMENDATION: 6 Month F/U This patient's information was entered into a reminder system with a target due date for their next mammogram. Electronically signed by: Susan Victoira DO 12/14/2024 12:49 PM EDT
== END 2024-12-14 11:56 | disposition home or self-care (01) ==
LOC: HO.MAMMO 11:55
PROVIDERS: PCP Student in an Organized Health Care Education/Training Program; Visit Provider Student in an Organized Health Care Education/Training Program
DX: R92.1 Mammographic calcification found on diagnostic imaging of breast (principal)
CPT/HCPCS: 77065

== ENCOUNTER → 2024-12-14 12:30 | Outpatient (BNV) | payer OTHER, SELFPAY | PROVIDERS: PCP Student in an Organized Health Care Education/Training Program; Visit Provider Internal Medicine | DX: R92.1 Mammographic calcification found on diagnostic imaging of breast (principal) | CPT/HCPCS: 77065 ==

== ENCOUNTER 2025-02-03 13:16 | Outpatient (REF) | payer OTHER, SELFPAY ==
--- NOTE | 2025-02-03 13:18 | EMG_ITS ---
Chief complaint: At least 2 months of constant hand pain and numbness, bilateral Reason for referral: Evaluate for Carpal Tunnel Syndrome Referred by: Luis CRONIN Procedure done: Bilateral upper extremities NCS/EMG Precautions and/or limitations: None The limb temperature was monitored continuously and remained between 32-36 degrees C during the performance of the NCS. Nerve Conduction Studies Anti Sensory Summary Table ?Stim Site NR Onset (ms) Norm Onset (ms) Peak (ms) Norm Peak (ms) O-P Amp (?V) Norm O-P Amp Site1 Site2 Delta-0 (ms) Dist (cm) Nile (m/s) Norm Nile (m/s) Left Median Anti Sensory (2nd Digit) Wrist ? 3.6 5.1 <3.6 8.2 >10 Wrist 2nd Digit 3.6 14.0 39 Right Median Anti Sensory (2nd Digit) Wrist ? 4.3 5.5 <3.6 7.1 >10 Wrist 2nd Digit 4.3 14.0 33 Right Radial Anti Sensory (Thumb) Forearm ? 1.5 2.0 <3.1 14.7 Forearm Thumb 1.5 0.0 Left Ulnar Anti Sensory (5th Digit) Wrist ? 2.4 3.3 <3.7 18.4 >15.0 Wrist 5th Digit 2.4 14.0 58 Right Ulnar Anti Sensory (5th Digit) Wrist ? 2.2 3.1 <3.7 26.1 >15.0 Wrist 5th Digit 2.2 14.0 64 Motor Summary Table ?Stim Site NR Onset (ms) Norm Onset (ms) O-P Amp (mV) Norm O-P Amp iAmp (mV) Amp (1st) (%) Site1 Site2 Delta-0 (ms) Dist (cm) Nile (m/s) Norm Nile (m/s) Left Median Motor (Abd Poll Brev) Wrist ? 4.9 <3.9 11.2 >4.5 13.5 100.0 Elbow Wrist 3.6 20.0 56 >45 Elbow ? 8.5 11.0 13.4 98.2 Right Median Motor (Abd Poll Brev) Wrist ? 6.9 <3.9 7.9 >4.5 9.3 100.0 Elbow Wrist 4.0 20.0 50 >45 Elbow ? 10.9 5.2 6.4 65.8 Left Ulnar Motor (Abd Dig Minimi) Wrist ? 2.5 <3.0 11.4 >5 13.7 100.0 B Elbow Wrist 3.0 18.0 60 >45 B Elbow ? 5.5 10.6 13.0 93.0 A Elbow B Elbow 2.0 10.0 50 >45 A Elbow ? 7.5 9.7 12.1 85.1 Right Ulnar Motor (Abd Dig Minimi) Wrist ? 2.8 <3.0 9.7 >5 12.2 100.0 B Elbow Wrist 3.2 16.5 52 >45 B Elbow ? 6.0 9.6 12.3 99.0 A Elbow B Elbow 1.5 10.0 67 >45 A Elbow ? 7.5 9.0 11.7 92.8 EMG ?Side Muscle Nerve Root Ins Act Fibs Psw Amp Dur Poly Recrt Int Pat Comment Right 1stDorInt Ulnar C8-T1 Nml Nml Nml Nml Nml 0 Nml Complete Right FlexCarRad Median C6-7 Nml Nml Nml Nml Nml 0 Nml Complete Right Biceps Musculocut C5-6 Nml Nml Nml Nml Nml 0 Nml Complete Right Triceps Radial C6-7-8 Nml Nml Nml Nml Nml 0 Nml Complete Right Deltoid Axillary C5-6 Nml Nml Nml Nml Nml 0 Nml Complete Left 1stDorInt Ulnar C8-T1 Nml Nml Nml Nml Nml 0 Nml Complete Left FlexCarRad Median C6-7 Nml Nml Nml Nml Nml 0 Nml Complete Left Biceps Musculocut C5-6 Nml Nml Nml Nml Nml 0 Nml Complete Left Triceps Radial C6-7-8 Nml Nml Nml Nml Nml 0 Nml Complete Left Deltoid Axillary C5-6 Nml Nml Nml Nml Nml 0 Nml Complete FINDINGS: Bilateral median motor nerves showed prolonged distal latency, normal amplitude and normal conduction velocity. Bilateral median sensory nerves showed prolonged peak latency and small amplitudes. All other nerves tested were within normal. Concentric needle EMG was performed in selected muscles of the bilateral upper extremities. Study did not reveal signs of electric abnormalities as shown in the table above. IMPRESSION: 1. This is an abnormal study. 2. There is electrodiagnostic evidence for bilateral moderate-severe median neuropathy at the wrist, consistent with carpal tunnel syndrome. 3. There is no electrodiagnostic evidence for ulnar neuropathy, brachial plexopathy, or cervical radiculopathy. Thank you for your kind referral. Jayde Soni MD, KO Board Certified, [place] Board of Physical Medicine and Rehabilitation (ABPMR) Board Certified, [place] Board of Electrodiagnostic Medicine (ABEM) CODIN [phone] x [phone] MTDD
--- OUTSIDE RECORDS SUMMARY | 2025-02-03 14:21 | XMS_ITS | Encounter Summary ---
Author Organization [employer] Address [address] [place] [address] Care Team Providers Care Grout Machine Tender Name Role Phone Tona Hayes MD Primary Care Provider [phone] Encounter Details Date Type Department Care Team ([facility] st Contact Info) Description 05/27/2023 Orders Only [facility] [address] [place] [address] [phone] Sanjiv Paez MD [address] [place], [place] [phone] Social History Tobacco Use Types Packs/Day Years [...] documented as of this encounter Care Teams Grout Machine Tender Relationship Specialty Start Date End Date Tona Hayes MD [address] [place] [phone] PCP - General Family Medicine 08/19/12 documented as of this encounter
--- OUTSIDE RECORDS SUMMARY | 2025-02-03 14:21 | XMS_ITS | Clinical Summary ---
Author Organization [employer] Address [address] [place] [address] Care Team Providers Care Printer'S Assistant Name Role Phone Tona Hayes MD Primary Care Provider [phone] Allergies Active Allergy Reactions Criticality Noted Date Comments Acetaminophen 03/26/2012 Other reaction(s): can not tolerate Lisinopril Cough 11/23/2014 Metoprolol 11/23/2014 Urofollitropin 01/21/2023 Oxycodone 03/26/2012 Other reaction(s): can not tolerate Oxycodone-Acetaminophen 01/21/2023 Medications hydrOXYzine HCl (Atarax) 25 MG tabletIndications :Anxiety Take 1 tablet (25 mg) by mouth if needed at bedtime for itching. 30 tablet 3 2 Active fluticasone (Flonase Allergy Relief) 50 MCG/ACT nasal sprayIndications: Nasal congestion Administer 1 spray into each nostril [...] of breath. 18 g 11 3 Active cyclobenzaprine (Flexeril) 5 MG tablet Take 1 tablet (5 mg) by mouth if needed in the morning, at noon, and at bedtime for muscle spasms for up to 40 doses. 40 tablet 3 Active triamterene-hydro chlorothiazide (Maxzide-25) 37.5-25 MG tablet Take 1 tablet by mouth in the morning. 90 tablet 3 4 Active ibuprofen 800 MG tabletIndications :Pain, unspecified TAKE 1 TABLET BY MOUTH THREE TIMES DAILY WITH FOOD NEEDED FOR PAIN 30 tablet 3 4 Active telmisartan (MIcarDIS) 20 MG tablet TAKE 1 TABLET BY MOUTH EVERY MORNING 90 tablet 3 5 Active Oyster Shell Calcium + D3 500-10 MG-MCG tabletIndications :Osteoporosis, unspecified osteoporosis type, unspecified pathological fracture presence TAKE 1 TABLET BY MOUTH EVERY MORNING 30 tablet 11 5 Active loratadine (Claritin) 10 MG tablet TAKE 1 TABLET BY MOUTH EVERY DAY IN THE MORNING 90 tablet 5 Active sertraline (Zoloft) 50 MG tablet TAKE 1 TABLET BY MOUTH EVERY MORNING 90 tablet 3 5 Active omeprazole (PriLOSEC) [address] capsule TAKE 1 CAPSULE BY MOUTH EVERY DAY BEFORE BREAKFAST. DO NOT BREAK, CRUSH, DISSOLVE OR CHEW. 90 capsule 3 5 Active Active Problems Problem Noted Date Diagnosed Date [...] Encounters Date Type Department Care Team Description 12/27/2024 9:20 AM EDT Office Visit [facility] [address] [place] [phone] Sanjiv Paez MD Bilateral carpal tunnel syndrome (Primary Dx); Bilateral hand pain; Bilateral wrist pain; Numbness and tingling in both hands 12/22/2024 Orders Only [facility] [address] [place] [phone] Sanjiv Paez MD Bilateral wrist pain (Primary Dx); Bilateral hand pain; Numbness and tingling in both hands 12/14/2024 Orders Only [facility] [address] [place] [address] Tona Hayes MD 12/12/2024 Refill [facility] [address] [place] [address] Tona Hayes MD 11/23/2024 Refill [facility] [address] [place] [address] Veronique Gaspar MD 11/09/2024 Orders Only [facility] [address] [place] [address] Tona Hayes MD Class 3 severe obesity with serious comorbidity and body mass index (BMI) of 45.0 to 49.9 in adult, unspecified obesity type (CMS/HCC) (Primary Dx) from Last 3 Months Immunizations Name Administration [...] Sign Reading Time Taken Comments Blood Pressure 137/86 12/27/2024 9:14 AM EDT Pulse 67 12/27/2024 9:14 AM EDT Temperature 36.8 ??C (98.2 ??F) 12/27/2024 9:14 AM ED T Respiratory Rate 16 12/27/2024 9:14 AM EDT Oxygen Saturation 98% 12/27/2024 9:14 AM EDT Inhaled Oxygen Concentration - - Weight 126 kg (277 lb 6.4 oz) 12/27/2024 9:14 AM EDT Height 160 cm (5' 3 ) 12/27/2024 9:14 AM EDT Body Mass Index 49.14 12/27/2024 9:14 AM EDT Plan of Treatment Health Maintenance Due Date Last Done Comments CT Colonography 1972 FIT DNA/Cologuard 1972 FIT 1972 FOBT 1972 HIV Screening 1972 Sigmoidoscopy 1972 Family Planning (PISQ) 1987 Hepatitis C Screening 1990 Pneumococcal Vaccine: 50+ Years (1 of 2 - PCV) 1991 Dental Prophylaxis 03/05/2014 09/03/2013 Dental Oral Exam 04/22/2014 10/22/2013, 07/10/2012 Dental X-Ray: Bitewings 09/04/2014 09/03/2013, 05/19 Dental X-Ray: Full Mouth 05/20/2015 05/19/2012 COVID-19 Vaccine ( season) 2024 06/27/2023, 08/30/2022, 08/17/2021, Additional history exists SDOH Screening 04/09/2025 04/09/2024 Alcohol/Substance Use Screening 04/15/2025 04/15/2024 Depression Screening 04/15/2025 04/15/2024, 04/15/20 Diabetes: Hemoglobin A1C 04/15/2025 024, 04/14/2023, 06/27/2021 Diagnostic Breast Imaging 06/16/2025 12/14/2024 Tobacco Screening 12/27/2025 12/27/2024 Cervical Cancer Screening 01/22/2028 HPV/Cotest 01/22/2028 01/21/2023, 05/18/2019 Pap Smear 01/22/2028 01/21/2023, 05/18/2019 Lipid Panel 04/15/2029 04/15/2024, 03/29, 04/17/2022, Additional history exists DTaP/Tdap/Td Vaccines (3 - Td or Tdap) 10/30/2031 10/30/2021, 10/29/2011, 06/28/2008 Colonoscopy 07/17/2032 07/17/2022 Colorectal Cancer Screening 07/17/2032 RSV Patients and Patients Aged 60 years or older (1 - 1-dose 75+ series) 2047 Hepatitis B Vaccines Completed 07/04/2023, 06/03/20 23 Zoster Vaccines Completed 08/05/2023, 06/03/2023 Influenza Vaccine Completed 06/10/2024, , 06/13/2022, Additional history exists HIB Vaccines Aged Out No longer eligi ble based on patient's age to complete this topic HPV Vaccines Aged Out No longer eligi ble based on patient's age to complete this topic Hepatitis A Vaccines Aged Out No long er eligible based on patient's age to complete [...] Procedure Name Priority Date/Time Associated Diagnosis Comments BI MAMMOGRAM ADDITIONAL VIEWS LEFT Routine 12/14/2024 12:10 PM EDT HEMOGLOBIN A1C Routine 04/15/2024 12:00 AM EDT Benign hypertension Class 3 severe obesity with serious comorbidity and body mass index (BMI) of 45.0 to 49.9 in adult, unspecified obesity type (CMS/HCC) LIPID PANEL, STANDARD Routine 04/15/2024 12:00 AM EDT Benign hypertension Class 3 severe obesity with serious comorbidity and body mass index (BMI) of 45.0 to 49.9 in adult, unspecified obesity type (CMS/HCC) IMAGE-GUIDED PAP W/AGE BASED SCR PROTOCOLS Routine 01/21/2023 9:43 AM EDT Cervical cancer screening PERIODIC ORAL EVALUATION - ESTABLISHED PATIENT Routine 10/22/2013 12:00 AM EST PROPHYLAXIS - ADULT Routine 09/03/2013 1 2:00 AM EST BITEWINGS - 4 RADIOGRAPHIC IMAGES Routine 09/03/2013 12:00 AM EST INTRAORAL - COMPLETE SERIES OF RADIOGRAPHIC IMAGES Routine 05/19/2012 12:00 AM EDT from Last 3 Months or Most Recently Relevant to Health Maintenance Results * Left mammogram, additional views (12/14/2024 12:10 PM EDT) Anatomical Region Laterality Modality Breast Left Mammography 12/14/2024 12:1 0 PM EDT Narrative 12/14/2024 12:52 PM EDT ? [facility] [place] ? [address] ?[place] [address] ? Mammography Report ? Signed ? Patient: Patrice,Chanel ?MR#: [id number] ?? [id number] ? : 1970 ?Acct:[id number] ? Age/Sex: 54 / F ?ADM Date: 03/18/25 ? Loc: HO.MAMMO ? Attending Dr: Tona Hayes MD ? Ordering Physician: Tona Hayes MD ?Results: 3.6MPro ?? bably Benign Finding - Short 6 M F/U Suggested ? Date of Service: 12/14/24 ?Follow Up: 6 Month F/U ? Procedure(s): MM added views LT ?? Accession Number(s): [id number] ? cc: Tona Hayes MD ? EXAMINATION: ?? MM DIAGNOSTIC DIGITAL MAMMOGRAPHY, LEFT ? CLINICAL INFORMATION: ? Call back from screening for grouped calcifications in the upper outer ?? left breast. History of benign right stereotactic core needle biopsy ?? for calcifications in 2021. ? COMPARISON: ?? Mammography: [facility] on PACS. ? TECHNIQUE: ?? Digital mammography is performed in craniocaudal and mediolateral ?? oblique views along with computer-aided detection (CAD). ? FINDINGS: ?? The breasts are heterogeneously dense, which may obscure small masses ?? (ACR BI-RADS breast composition Category c). ?? Grouped punctate calcifications in the upper outer quadrant on ?? magnification views some may have been seen on prior images in ?? 2023,2022. ?? No suspicious masses or other abnormal findings. ? Results are provided to the patient at time of visit by the ?? technologist. ? MM/MM added views LT ?? IMPRESSION: ?? Grouped punctate palpitations in the upper outer quadrant. 6 month ?? follow-up versus stereotactic core needle biopsy with to the ?? patient. The patient for six-month follow-up with magnification views ?? at this time. ? ASSESSMENT: ? BI-RADS BI-RADS 3 - Probably benign finding(s) - 6 month follow-up ?? suggested ? RECOMMENDATION: ?? 6 Month F/U ? This patient's information was entered into a reminder system with a ?? target due date for their next mammogram. ? Electronically signed by: ??Susan Victoria DO ??12/14/2024 12:49 PM EDT ? Dictated By: ?Susan Victoria DO ? Signed By: ?<Electronically signed by Susan Victoria, DO in OV> ? 12/14/24 1249 ? DD/ 1210 ? TD/TT: 12/14/24 1225 ? Snowblower Mechanic: ? Procedure Note Donharjinderter, Image - 12/14/2024 [facility] [address] [place] [address] Mammography Report Signed Patient: Francisco J Ibrahim#: [id number] : 1970Acct:[id number] Age/Sex: 54 / FADM Date: 12/14/24 Loc: HO.MAMMO Attending Dr: Tona Hayes MD Ordering Physician: Tona Hayes MDResults: 3.6MPro bably Benign Finding - Short 6 M F/U Suggested Date of Service: 12/14/24Follow Up: 6 Month F/U Procedure(s): MM added views LT Accession Number(s): [id number] cc: Tona Hayes MD EXAMINATION: MM DIAGNOSTIC DIGITAL MAMMOGRAPHY, LEFT CLINICAL INFORMATION: Call back from screening for grouped calcifications in the upper outer left breast. History of benign right stereotactic core needle biopsy for calcifications in 2021. COMPARISON: Mammography: [facility] on PACS. TECHNIQUE: Digital mammography is performed in craniocaudal and mediolateral oblique views along with computer-aided detection (CAD). FINDINGS: The breasts are heterogeneously dense, which may obscure small masses (ACR BI-RADS breast composition Category c). Grouped punctate calcifications in the upper outer quadrant on magnification views some may have been seen on prior images in 2023,2022. No suspicious masses or other abnormal findings. Results are provided to the patient at time of visit by the technologist. MM/MM added views LT IMPRESSION: Grouped punctate palpitations in the upper outer quadrant. 6 month follow-up versus stereotactic core needle biopsy with to the patient. The patient for six-month follow-up with magnification views at this time. ASSESSMENT: BI-RADS BI-RADS 3 - Probably benign finding(s) - 6 month follow-up suggested RECOMMENDATION: 6 Month F/U This patient's information was entered into a reminder system with a target due date for their next mammogram. Electronically signed by: Susan Victoria DO 12/14/2024 12:49 PM EDT RP Dictated By: Susan Victoria DO Signed By: <Electronically signed by Susan Victoria DO in OV> 12/14/24 1249 DD/ 1210 TD/TT: 12/14/24 1225 Snowblower Mechanic: Tona Hayes MD IMG BI PROCEDURES Final Result * Hemoglobin A1c (04/15/2024 12:00 AM EDT) Hemoglobin A1c 5.8 <6.0 % [facility] Comment:Hemoglobin A1C Refer ence Range Adults: 4.8 - 6.0 % Non diabetic: < 6.0 % Goal: < 7.0 %Additional Action Suggested: > 8.0 %Note: Hemoglobin A1c results are invalid for patients with abnormal amounts of HbF. Blood transfusions may impact the HbA1c concentration in the patient sample. Estimated Average Glucose 120 mg/dL [facility] Comment:eAG = Estimated ave rage glucose which is %A1C expressed asaverage glucose, using the formula of the N6L-IkvqonrYsuxgnb Glucose study (ADAG), Diabetes Care, Vol.31,#8,Apr. 2007 Blood Venous blood specimen / Unknown 04/15/2024 04/15/2024 Tona Hayes MD LAB BLOOD ORDERABLES Final Resul t Performing Organization Address City/[facility] [employer] Phone Number [facility] [address] [place] [phone] [phone] * (ABNORMAL) Lipid Panel, Standard (04/15/2024 12:00 AM EDT) Triglycerides 156(H) <150 mg/dL [facility] Comment:Desirable Triglyceri de: less than 150 mg/dLBorderline High Triglyceride 150-199 mg/dLHigh Triglyceride: 200-499 mg/dLVery High Triglyceride: greater than or equal to 5OO mg/dL Cholesterol 183 <200 mg/dL [facility] Comment:Desirable Cholestero l: less than 200 mg/dLBorderline High Cholesterol: 200-239 mg/dLHigh Cholesterol: greater than 239 mg/dL LDL Cholesterol Calculated 117(H) <100 mg/dL [facility] Comment:Desirable LDL: less than 100 mg/dLNear Optimal/Above Optimal LDL: 110- 129 mg/dLBorderline High LDL: 130-159 mg/dLHigh LDL: 160-189 mg/dLVery High LDL: greater than or equal to 190 mg/dL HDL Cholesterol 35(L) >40 mg/dL [facility] Comment:Desirable HDL: great er than 40 mg/dL Note: This HDL assay may give artificially low results in patients with liver disease. Blood Venous blood specimen / Unknown 04/15/2024 04/15/2024 Tona Hayes MD LAB BLOOD ORDERABLES Final Resul t Performing Organization Address [facility]/[employer] Phone Number [facility] [address] [place] [address] [phone] * Image-Guided Pap with Age-Based Screening Protocols (01/21/2023 9:43 AM EDT) Comment [facility] Comment: This order for age-based cervical cancer and STI screening follows ACOG guidelines(PB 168, 140, EAW904). See individual assays for performing site location. Clinical Information: None given [facility] [employer] LMP: NONE GIVEN [facility] Prev. PAP: NONE GIVEN [facility] [employer] Prev. BX: NONE GIVEN [place] [facility] SOURCE: None given [place] [email or web address] Statement Of Adequacy: [facility] [email or web address] Comment: Satisfactory for evaluation. Endocervical/transformation zone component present. Interpretation/ Result: Negative for intraepithelial lesion or malignancy. [facility] [place] [employer] COMMENT: This Pap test has been evaluated with computer assisted technology. [facility] [employer] Cytotechnologis t: [facility] [place] [email or web address] Comment: SXA, CT(ASCP) CT screening location: [address] ??[phone] (Always Message) [facility] Comment: EXPLANATORY NOTE: The Pap is a [...] HPV nRNA E6/E7 Not Detected Not Detected [facility] Comment: Methodology: Customs Inspector-Mediated Amplification This assay detects E6/E7 viral messenger RNA (mRNA) from 14 high-risk HPV types (16,18,31,33,35,39,45,51,52,56,58,59,66,68). Cervical sources are required for HPV testing. If a vaginal source from a patient who has had a total hysterectomy with removal of cervix was submitted, please contact the testing laboratory for alternative testing options. For additional information, please refer to http://education.[employer]/faq/UEU620u6 (This link if provided for information/ educational purposes only.) Cytology specimen container (physical object) 01/21/2023 9:43 AM EDT 01/22/2023 6:22 AM EDT Adeola Ovalles CNM LAB BLOOD ORDERABLES Jannet l Result [address], [place] [address] [facility] [address] [place] [phone] from Last 3 Months or Most Recently Relevant to Health Maintenance Insurance [id number] [id number] [facility] , [address] [address] HSN PARTIAL [address] [address] DENTAL - HSN PARTIAL (MEDICAID) Care Teams Printer'S Assistant Relationship Specialty Start Date End Date Tona Hayes MD [address] [place] [phone] PCP - General Family Medicine 08/19/12
--- OUTSIDE RECORDS SUMMARY | 2025-02-03 14:21 | XMS_ITS | Encounter Summary ---
Author Organization [employer] Address [address] [facility] [address] [place] [address] Care Team Providers Care Transit Authority Police Officer Name Role Phone Tona Hayes MD Primary Care Provider [phone] Reason for Visit * Reason Comments Med Refill Encounter Details Date Type Department Care Team (Late st Contact Info) Description 09/02/2022 Refill [facility] [address] [place], [place] [phone] Tona Hayes MD [address] [place], [place] [phone] Social History Tobacco Use Types Packs/Day Years [...] on filedocumented in this encounter Care Teams Transit Authority Police Officer Relationship Specialty Start Date End Date Tona Hayes MD [address] [place] [phone] PCP - General Family Medicine 08/19/12 documented as of this encounter
--- OUTSIDE RECORDS SUMMARY | 2025-02-03 14:21 | XMS_ITS | Encounter Summary ---
Author Organization [employer] Address [address] [place] [address] Care Team Providers Care Rat Farmer Name Role Phone Tona Hayes MD Primary Care Provider Reason for Referral * Medications - Closed Specialty Diagnoses / Procedures Referred By Lane velasquez Referred To Contact Sanjiv Paez MD [address] [place] [address] Phone: tel: fax: Referral ID Status Reason Start Date Expiration Date Visits Re quested Visits Authorized [id number] Closed 1 1 Encounter Details Date Type Department Care Team (Late st Contact Info) Description 03/28/2023 Orders Only [facility] [address] [place] [address] Sanjiv Paez MD [address] [place] [address] Social History Tobacco Use Types Packs/Day Years Used Date Smoking Tobacco: Former Cigarettes Smokeless Tobacco: Never Comments Unknown Sex and Gender Information Value [...] on filedocumented in this encounter Care Teams Rat Farmer Relationship Specialty Start Date End Date Tona Hayes MD [address] [place] [phone] PCP - General Family Medicine 08/19/12 documented as of this encounter
--- OUTSIDE RECORDS SUMMARY | 2025-02-03 14:22 | XMS_ITS | Encounter Summary ---
Author Organization [employer] Address [address] 7t [place] [address] Care Team Providers Care Shipping And Receiving Name Role Phone Tona Hayes MD Primary Care Provider Encounter Details Date Type Department Care Team (Late st Contact Info) Description 11/13/2022 Orders Only [facility] [address] [place] [address] Sanjiv Paez MD [address] [place], [place] [phone] Nasal congestion (Primary Dx) Social History Tobacco [...] sinuses documented in this encounter Care Teams Shipping And Receiving Relationship Specialty Start Date End Date Tona Hayes MD [address] [place] [address] PCP - General Family Medicine 08/19/12 documented as of this encounter
== END 2025-02-03 13:17 | disposition home or self-care (01) ==
LOC: HO.NEURO 13:16
PROVIDERS: PCP Student in an Organized Health Care Education/Training Program
DX: R20.0 Anesthesia of skin (principal); R20.2 Paresthesia of skin
CPT/HCPCS: 95886; 95911

== ENCOUNTER → 2025-02-03 13:18 | Outpatient (BNV) | payer OTHER, SELFPAY | PROVIDERS: PCP Student in an Organized Health Care Education/Training Program; Visit Provider Physical Medicine & Rehabilitation | DX: G56.03 Carpal tunnel syndrome, bilateral upper limbs (principal) | CPT/HCPCS: 95886; 95911 ==

== ENCOUNTER 2025-02-11 14:51 | Outpatient (AMB) | payer OTHER, SELFPAY ==
--- NOTE | 2025-02-11 14:53 | MHC.OFFVIS ---
Intake Visit Reasons: N/P B/L hand CTS EMG done 02/03/25 Intake Note: Chanel 54 year old right hand dominant female who presents today as a new patient with complaints of bilateral hand pain, numbness and tingling that started about 2 months ago. IMPRESSION: 1. This is an abnormal study. 2. There is electrodiagnostic evidence for bilateral moderate-severe median neuropathy at the wrist, consistent with carpal tunnel syndrome. 3. There is no electrodiagnostic evidence for ulnar neuropathy, brachial plexopathy, or cervical radiculopathy. Allergies lisinopril [LISINOPRIL] Allergy (Unknown, Verified 02/11/25 14:53) UNKNOWN metoprolol [METOPROLOL] Adverse Reaction (Unknown, Verified 02/11/25 14:53) HEADACHES oxycodone [From PERCOCET] Adverse Reaction (Unknown, Verified 02/11/25 14:53) NAUSEA & VOMITING HPI HPI N/P B/L hand CTS EMG done 02/03/25: Details: Chanel 54 year old right hand dominant female who presents today as a new patient with complaints of bilateral hand pain, numbness and tingling that started about 2 months ago. Patient expresses that her symptoms are intermittent, daily, and worse at night. The patient also states that her symptoms worsened with activity and resolve with resting. IMPRESSION: 1. This is an abnormal study. 2. There is electrodiagnostic evidence for bilateral moderate-severe median neuropathy at the wrist, consistent with carpal tunnel syndrome. 3. There is no electrodiagnostic evidence for ulnar neuropathy, brachial plexopathy, or cervical radiculopathy. [facility] Medical History Hypertension Morbid obesity Breast calcification, right Surgical History History of tubal ligation Family History Paternal Aunt Breast cancer Social History Patient Tobacco Use Status: Current everyday Tobacco user Female Reproductive History Menstrual Age of Menarche: 14 Review of Systems Const All systems reviewed & are unremarkable except as noted in HPI and below Physical Exam Extrem Other: Neuro: Normal sensation of the tips of all digits of bilateral hands in the office today No thenar or intrinsic wasting. Good APB muscle firing and good finger cross. Vascular: Capillary refill brisk. ROM: Patient can make a fist and extend all their digits. Skin: No lacerations or abrasions noted. General: No ecchymosis. No erythema or evidence of infection. Assessment & Plan Assessment & Plan (1) Bilateral carpal tunnel syndrome: Code(s): G56.03 - Carpal tunnel syndrome, bilateral upper limbs Category: Medical Plan 1. Bilateral carpal tunnel syndrome Symptoms intermittent, daily, worse at night Patient is educated about this condition Patient is educated about the typical treatment course At this time, patient is informed that the preferred treatment for carpal tunnel syndrome is minor surgery, but states she is not in a position where she can do this at this time Patient states she is going to the [facility] in March, and would like to come back after that to discuss potential carpal tunnel release Follow-up after April 05 for discussion of right carpal tunnel release, sooner with any acute concerns Coding Level of Care Code New Pt Level 3 (20078) Diagnoses Bilateral carpal tunnel syndrome G56.03
--- OUTSIDE RECORDS SUMMARY | 2025-02-11 14:54 | XMS_ITS | Encounter Summary ---
Author Organization [employer] Address [address] [place] [address] Care Team Providers Care Art Gallery Internship Name Role Phone Tona Hayes MD Primary Care Provider [phone] Encounter Details Date Type Department Care Team ([facility] st Contact Info) Description 11/13/2022 Orders Only [facility]S [address] [place] [address] Sanjiv Paez MD [address] [place], [place] [phone] Nasal congestion (Primary Dx) Social History Tobacco [...] sinuses documented in this encounter Care Teams Art Gallery Internship Relationship Specialty Start Date End Date Tona Hayes MD [address] [place] [address] PCP - General Family Medicine 08/19/12 documented as of this encounter
--- OUTSIDE RECORDS SUMMARY | 2025-02-11 14:54 | XMS_ITS | Encounter Summary ---
Author Organization [employer] Address [address] [facility] 7t [place] [address] Care Team Providers Care Shellac Polisher Name Role Phone Tona Hayes MD Primary Care Provider [phone] Reason for Referral * Medications - Closed Specialty Diagnoses / Procedures Referred By Lane velasquez Referred To Contact Sanjiv Paez MD [address] [place] [address] Phone: tel: fax: Referral ID Status Reason Start Date Expiration Date Visits Re quested Visits Authorized [id number] Closed 1 1 Encounter Details Date Type Department Care Team (Late st Contact Info) Description 03/28/2023 Orders Only [facility] [address] [place] [address] Sanjiv Paez MD [address] [place] [address] Social History Tobacco Use Types Packs/Day Years [...] on filedocumented in this encounter Care Teams Shellac Polisher Relationship Specialty Start Date End Date Tona Hayes MD [address] [place] [address] PCP - General Family Medicine 08/19/12 documented as of this encounter
--- OUTSIDE RECORDS SUMMARY | 2025-02-11 14:54 | XMS_ITS | Encounter Summary ---
Author Organization [employer] Address [address] [facility] 7t [place] [address] Care Team Providers Care Sld Educational Aide Name Role Phone Tona Hayes MD Primary Care Provider [phone] Reason for Visit * Reason Comments Med Refill Encounter Details Date Type Department Care Team (Late st Contact Info) Description 09/02/2022 Refill [facility] [address] [place], [place] [phone] Tona Hayes MD [address] [place], [place] [phone] Social History Tobacco Use Types Packs/Day Years [...] on filedocumented in this encounter Care Teams Sld Educational Aide Relationship Specialty Start Date End Date Tona Hayes MD [address] [place] [address] PCP - General Family Medicine 08/19/12 documented as of this encounter
--- OUTSIDE RECORDS SUMMARY | 2025-02-11 14:54 | XMS_ITS | Clinical Summary ---
Author Organization [employer] Address [address] [facility] 7t [place] [address] Care Team Providers Care Ingot Header Name Role Phone Tona Hayes MD Primary Care Provider [phone] Allergies Active Allergy Reactions Criticality Noted Date [...] Description 12/27/2024 9:20 AM EDT Office Visit [facility] [address] [place] [address] Sanjiv Paez MD Bilateral carpal tunnel syndrome (Primary Dx); Bilateral hand pain; Bilateral wrist pain; Numbness and tingling in both hands 12/22/2024 Orders Only [facility] [address] [place] [address] Sanjiv Paez MD Bilateral wrist pain (Primary Dx); Bilateral hand pain; Numbness and tingling in both hands 12/14/2024 Orders Only [facility] [address] [place] [address] Tona Hayes MD 12/12/2024 Refill [facility] [address] [place] [address] Tona Hayes MD 11/23/2024 Refill [facility] [address] [place] [address] Veronique Gaspar MD from Last 3 Months Immunizations Immunization Administration Dates Next Due HepB-CpG 07/04/2023,06/03/2023 Influenza [...] the past 12 months, has t he [employer], gas, oil or water company threatened to [...] patient's age to complete this topic Meningococcal B Vaccine Aged Out No l onger eligible based on patient's age to complete [...] EDT Narrative 12/14/2024 12:52 PM EDT ? [facility] ? [address] ?[place] [address] ? Mammography Report ? Signed ? Patient: Patrice,Chanel ?MR#: [id number] ?? [id number] ? : 1970 ?Acct:[id number] ? Age/Sex: 54 / F ?ADM Date: 03/18/25 ? Loc: HO.MAMMO ? Attending Dr: Tona Hayes MD ? Ordering Physician: Tona Hayes MD ?Results: 3.6MPro ?? bably Benign Finding - Short 6 M F/U Suggested ? Date of Service: 12/14/24 ?Follow Up: 6 Month F/U ? Procedure(s): MM added views LT ?? Accession Number(s): [id number] ? cc: Tona Hayes MD ? EXAMINATION: [...] DD/ 1210 ? TD/TT: 12/14/24 1225 ? Gold Buyer: ? Procedure Note [email or web address], Image - 12/14/2024 Rukhsana [facility] [address] [place] [address] Mammography Report Signed Patient: Francisco J Ibrahim#: [id number] : 1970Acct:[id number] Age/Sex: 54 / FADM Date: 12/14/24 Loc: HO.MAMMO Attending Dr: Tona Hayes MD Ordering Physician: Tona Hayes MDResults: 3.6MPro bably Benign Finding - Short 6 M F/U Suggested Date of Service: 12/14/24Follow Up: 6 Month F/U Procedure(s): MM added views Accession Number(s): [id number] cc: Tona Hayes MD EXAMINATION: MM DIAGNOSTIC [...] 12/14/24 1249 DD/ 1210 TD/TT: 12/14/24 1225 Gold Buyer: us Tona Hayes MD IMG BI PROCEDURES Final Result * Hemoglobin A1c (04/15/2024 12:00 AM EDT) Hemoglobin A1c 5.8 <6.0 % [facility] Comment:Hemoglobin A1C Refer ence Range Adults: 4.8 - 6.0 % Non diabetic: < 6.0 % Goal: < 7.0 %Additional Action Suggested: > 8.0 %Note: Hemoglobin A1c results are invalid for patients with abnormal amounts of HbF. Blood transfusions may impact the HbA1c concentration in the patient sample. Estimated Average Glucose 120 mg/dL [facility] Comment:eAG = Estimated ave rage glucose which is %A1C expressed asaverage glucose, using the formula of the X9G-MelbegqGolbhnb Glucose study (ADAG), Diabetes Care, Vol.31,#8,Aug. 2007 Blood Venous blood specimen / Unknown 04/15/2024 04/15/2024 us Tona Hayes MD LAB BLOOD ORDERABLES Final Resul t [facility] [address] [place] [address] [phone] * (ABNORMAL) Lipid Panel, Standard (04/15/2024 12:00 AM EDT) Triglycerides 156(H) <150 mg/dL [facility] Comment:Desirable Triglyceri de: less than 150 mg/dLBorderline High Triglyceride 150-199 mg/dLHigh Triglyceride: 200-499 mg/dLVery High Triglyceride: greater than or equal to 5OO mg/dL Cholesterol 183 <200 mg/dL [facility] Comment:Desirable Cholestero l: less than 200 mg/dLBorderline High Cholesterol: 200-239 mg/dLHigh Cholesterol: greater than 239 mg/dL LDL Cholesterol Calculated 117(H) <100 mg/dL [facility] Comment:Desirable LDL: less than 100 mg/dLNear Optimal/Above Optimal LDL: 110- 129 mg/dLBorderline High LDL: 130-159 mg/dLHigh LDL: 160-189 mg/dLVery High LDL: greater than or equal to 190 mg/dL HDL Cholesterol 35(L) >40 mg/dL [facility] Comment:Desirable HDL: great er than 40 mg/dL Note: This HDL assay may give artificially low results in patients with liver disease. Blood Venous blood specimen / Unknown 04/15/2024 04/15/2024 us Tona Hayes MD LAB BLOOD ORDERABLES Final Resul t [facility] [address] [place] [address] [phone] * Image-Guided Pap with Age-Based Screening Protocols (01/21/2023 9:43 AM EDT) Comment [employer] Comment: This order for age-based cervical cancer and STI screening follows ACOG guidelines(PB 168, 140, LIW935). See individual assays for performing site location. Clinical Information: None given [facility] LMP: NONE GIVEN [facility] Prev. PAP: NONE GIVEN [facility] Prev. BX: NONE GIVEN [facility] SOURCE: None given [facility] Statement Of Adequacy: [facility] Comment: Satisfactory for evaluation. Endocervical/transformation zone component present. Interpretation/ Result: Negative for intraepithelial lesion or malignancy. [facility] COMMENT: This Pap test has been evaluated with computer assisted technology. [facility] Cytotechnologis t: [facility] Comment: SXA, CT(ASCP) CT screening location: [address] ??[phone] (Always Message) [facility] Comment: EXPLANATORY NOTE: The Pap is a [...] HPV nRNA E6/E7 Not Detected Not Detected [facility] Comment: Methodology: Respiratory Practitioner-Mediated Amplification This assay detects E6/E7 viral messenger RNA (mRNA) from 14 high-risk HPV types (16,18,31,33,35,39,45,51,52,56,58,59,66,68). Cervical sources are required for HPV testing. If a vaginal source from a patient who has had a total hysterectomy with removal of cervix was submitted, please contact the testing laboratory for alternative testing options. For additional information, please refer to http://education.[employer]/faq/GHX972x2 (This link if provided for information/ educational purposes only.) Cytology specimen container (physical object) 01/21/2023 9:43 AM EDT 01/22/2023 6:22 AM EDT Adeola MADERA LAB BLOOD ORDERABLES Jannet kim Result [address], [place] [address] [facility] [address] [place] [address] from Last 3 Months or Most Recently Relevant to Health Maintenance Insurance [id number] [id number] [facility] HSN PARTIAL [address] [address] DENTAL - HSN PARTIAL (MEDICAID) Care Teams Ingot Header Relationship Specialty Start Date End Date Tona Hayes MD [address] [place] [address] PCP - General Family Medicine 08/19/12
--- OUTSIDE RECORDS SUMMARY | 2025-02-11 14:54 | XMS_ITS | Encounter Summary ---
Author Organization [employer] Address [address]t [place] [address] Care Team Providers Care Wallpaper Remover Steam Name Role Phone Tona Hayes MD Primary Care Provider [phone] Encounter Details Date Type Department Care Team ([facility] st Contact Info) Description 05/27/2023 Orders Only [facility] [address] [place] [address] [phone] Sanjiv Paez MD [address] [place], [place] [phone] Social History Tobacco Use Types Packs/Day Years [...] documented as of this encounter Care Teams Wallpaper Remover Steam Relationship Specialty Start Date End Date Tona Hayes MD [address] [place] [address] PCP - General Family Medicine 08/19/12 documented as of this encounter
== END 2025-02-11 15:15 | disposition home or self-care (01) ==
LOC: HO.HOS 14:52
PROVIDERS: PCP Student in an Organized Health Care Education/Training Program
DX: G56.03 Carpal tunnel syndrome, bilateral upper limbs (principal)
CPT/HCPCS: 99203

== ENCOUNTER 2025-04-06 12:52 | Outpatient (AMB) | payer OTHER, SELFPAY ==
--- NOTE | 2025-04-06 13:14 | A.OFFVIS_ITS ---
Vital Signs 04/06/25 13:26 Height 5 ft 3 in Weight 258 lb BMI 45.7 Intake Visit Reasons: OV- RT hand CTS discuss CTR Intake Note: Chanel 54 year old right hand dominant female who presents today for a follow up of his Right Carpal Tunnel Syndrome. Today she would like to move forward with Booking a Right Carpal Tunnel Release. EMG done and reviewed. Allergies lisinopril (LISINOPRIL) Allergy (Unknown, Verified 04/06/25 13:26) UNKNOWN metoprolol (METOPROLOL) Adverse Reaction (Unknown, Verified 04/06/25 13:26) HEADACHES oxycodone (From PERCOCET) Adverse Reaction (Unknown, Verified 04/06/25 13:26) NAUSEA & VOMITING HPI HPI OV- RT hand CTS discuss CTR: Details: Chanel 54 year old right hand dominant female who presents today for a follow up of his Right Carpal Tunnel Syndrome. Today she would like to move forward with Booking a Right Carpal Tunnel Release. EMG done and reviewed. IMPRESSION: 1. This is an abnormal study. 2. There is electrodiagnostic evidence for bilateral moderate-severe median neuropathy at the wrist, consistent with carpal tunnel syndrome. 3. There is no electrodiagnostic evidence for ulnar neuropathy, brachial plexopathy, or cervical radiculopathy. [facility] Medical History Hypertension Morbid obesity Breast calcification, right Surgical History History of tubal ligation Family History Paternal Aunt Breast cancer Social History Patient Tobacco Use Status: Current everyday Tobacco user Female Reproductive History Menstrual Age of Menarche: 14 Review of Systems Const All systems reviewed & are unremarkable except as noted in HPI and below Physical Exam Vital Signs: BMI result Body Mass Index 45.7 Extrem Other: Neuro: Normal sensation of the tips of all digits of bilateral hands in the office today No thenar or intrinsic wasting. Good APB muscle firing and good finger cross. Vascular: Capillary refill brisk. ROM: Patient can make a fist and extend all their digits. Skin: No lacerations or abrasions noted. General: No ecchymosis. No erythema or evidence of infection. Assessment & Plan Assessment & Plan (1) Bilateral carpal tunnel syndrome: Code(s): G56.03 - Carpal tunnel syndrome, bilateral upper limbs Category: Medical Plan 1. Right carpal tunnel syndrome Symptoms intermittent, daily, worse at night I educated the patient about the condition. I discussed both operative and nonoperative treatment options. The patient would like to proceed with surgery. The risks and benefits of operative treatment were discussed with the patient and the patient wishes to proceed with surgery. These risks include, but are not limited to, risk of damage to blood vessels, nerves, tendons, infection, recurrence, incomplete relief of preoperative symptoms, persistent pain, possible need for further surgery, and the risks associated with regional blocks and/or anesthesia. Plan is to take the patient to the operating room at some point in the next few weeks for the following procedures: 1. Right carpal tunnel release under local All of the preoperative paperwork including the consent was discussed today. All of the patient's questions were answered in the clinic today. The patient understands that they will be in contact with our web sizer to discuss scheduling their procedure. Patient denies diabetes, blood thinners, asthma, heart issues, lung issues, kidney issues, or current smoking. Coding Level of Care Code Est Pt Level 4 (69132) Diagnoses Bilateral carpal tunnel syndrome G56.03
[2025-04-06 13:26] VITALS: BMI 45.7
--- OUTSIDE RECORDS SUMMARY | 2025-04-06 13:43 | XMS_ITS | Encounter Summary ---
Author Organization [employer] Address [address] [facility] 7t [place] [address] Care Team Providers Care Sql Data Architect Name Role Phone Tona Hayes MD Primary Care Provider [phone] Reason for Referral * Medications - Closed Specialty Diagnoses / Procedures Referred By Lane velasquez Referred To Contact Sanjiv Paez MD [address] [place] [address] Phone: tel: fax: Referral ID Status Reason Start Date Expiration Date Visits Re quested Visits Authorized [id number] Closed 1 1 Encounter Details Date Type Department Care Team (Late st Contact Info) Description 03/28/2023 Orders Only [facility] [address] [place] [phone] Sanjiv Paez MD [address] [place] [address] Social History Tobacco Use Types Packs/Day Years [...] on filedocumented in this encounter Care Teams Sql Data Architect Relationship Specialty Start Date End Date Tona Hayes MD [address] [place] [address] [place] [address] PCP - General Family Medicine 08/19/12 documented as of this encounter
== END 2025-04-06 13:36 | disposition home or self-care (01) ==
LOC: HO.HOS 12:53
PROVIDERS: PCP Student in an Organized Health Care Education/Training Program
DX: G56.03 Carpal tunnel syndrome, bilateral upper limbs (principal)
CPT/HCPCS: 99214

== ENCOUNTER 2025-05-02 06:22 | Day surgery (SDC) | payer OTHER, SELFPAY ==
--- OUTSIDE RECORDS SUMMARY | 2025-04-27 14:44 | XMS_ITS | Encounter Summary ---
Author Organization [employer] Address [address] [place] [address] Care Team Providers Care Financial Sales Advisor Name Role Phone Tona Hayes MD Primary Care Provider [phone] Encounter Details Date Type Department Care Team ([facility] st Contact Info) Description 03/28/2023 Orders Only [facility] [address] [place], [place] [phone] Sanjiv Paez MD [address] [place], [place] [phone] Social History Tobacco Use Types Packs/Day Years [...] on filedocumented in this encounter Care Teams Financial Sales Advisor Relationship Specialty Start Date End Date Tona Hayes MD [address] [place] [address] [phone] PCP - General Family Medicine 08/19/12 documented as of this encounter
[2025-05-02 06:34] VITALS: BMI 44.4
[2025-05-02 06:40] VITALS: BP 113/49; PULSE 80; RESP 17; TEMP 36.9; O2SAT 98
--- NOTE | 2025-05-02 07:54 | P.OP_ITS ---
Operative Note Operative Note Date of Service: 05/02/25 Narrative: Preop diagnosis: 1. Right Carpal tunnel syndrome Postop diagnosis: same Procedure: 1. Right Carpal tunnel release Surgeon: Lizbeth Botello MD [employer] Erp Architect: None Anesthesia: local block using 1% lidocaine with epinephrine Findings: Thickened transverse carpal ligament. EBL: Less than 5 mL Specimens: None Complications: None Disposition: Brought to recovery room in stable condition Plan: Follow-up for 10-14 days for wound check and suture removal Indications: The patient is 54 years old, with right carpal tunnel syndrome that has been unresponsive to nonoperative management. The risks and benefits of operative treatment including but not limited to risk of damage to blood vessels, nerves, tendons, infection, persistent pain, persistent symptoms, or possible need for additional surgery were discussed with the patient and the patient wishes to proceed with surgery. Procedure: Once consent was obtained a local block was performed using a combination of 1% lidocaine with epinephrine. The patient was then brought back to the operating suite and placed on the operative table in supine position. The right upper extremity was prepped and draped in a standard surgical fashion. Once assured that we had a good block, a 2.0 cm longitudinal incision was made centered over the carpal tunnel. The incision was made through the skin to the subcutaneous tissues using a #15 blade. Dissection was made down to the level of the transverse carpal ligament with care being taken to protect the palmar cutaneous nerve. Once the transverse carpal ligament was clearly visualized, a longitudinal incision was made in the transverse carpal ligament 1st using a #15 blade, then using tenotomy scissors under direct visualization. Care was taken to look for and protect the motor branch of the median nerve when seen in this area. Once satisfied with our carpal tunnel release the wound was copiously irrigated with normal saline and hemostasis was obtained with a brief period of local pressure. The skin edges were reapproximated with some 5.0 nylon suture material and a sterile dressing was applied. The patient appears to have tolerated the procedure well and with no complic ations. All digits were well vascularized at the conclusion of the case.
--- NOTE | 2025-05-02 07:54 | MHC.SHP ---
Pre-Procedural Eval Section A - 24 Hr Update-Section A only Date of Service: 05/02/25 The patient is an INPATIENT: No Changes since office visit: No Cold of Flu in the past 2 weeks, No New Medical Problems, No Changes in Medication and No Patient answered all questions The patient has been examined within 24 hours of the surgical procedure. The History & Physical has been completed within 30 days and I have reviewed it.: Yes Section B - Complete if H&P > 30 days Chief Complaint: Carpal tunnel syndrome, right upper limb Allergies: Allergies Allergy/AdvReac Type Severity Reaction Status Date / Time lisinopril (LISINOPRIL) Allergy Unknown UNKNOWN Verified 05/02/25 06:33 metoprolol (METOPROLOL) AdvReac Unknown HEADACHES Verified 05/02/25 06:33 oxycodone (From PERCOCET) AdvReac Unknown NAUSEA & Verified 05/02/25 06:33 VOMITING Plan Diagnosis/Plan: Unchanged I have reviewed the history and physical and performed a pertinent physical examination on my patient. No changes have occurred unless specified. Time Spent With Patient Time: Total time managing care of this patient today ____ minutes.
[2025-05-02 08:51] VITALS: BP 110/59; PULSE 73; RESP 15; O2SAT 95
== END 2025-05-02 08:53 | disposition home or self-care (01) ==
PROVIDERS: PCP Student in an Organized Health Care Education/Training Program; Visit Provider Orthopaedic Surgery
PROC: (CPT 64721; principal; 2025-05-02 07:30)
DX: G56.01 Carpal tunnel syndrome, right upper limb (principal); I10 Essential (primary) hypertension; R92.1 Mammographic calcification found on diagnostic imaging of breast; E66.01 Morbid (severe) obesity due to excess calories; Z68.42 Body mass index [BMI] 45.0-49.9, adult; Z88.8 Allergy status to other drugs, medicaments and biological substances; Z88.5 Allergy status to narcotic agent; Z98.51 Tubal ligation status; F17.210 Nicotine dependence, cigarettes, uncomplicated
CPT/HCPCS: 64721; J0165; J2003; J2004

== ENCOUNTER → 2025-05-02 06:22 | Outpatient (BNV) | payer OTHER, SELFPAY | PROVIDERS: PCP Student in an Organized Health Care Education/Training Program; Visit Provider Orthopaedic Surgery | DX: G56.01 Carpal tunnel syndrome, right upper limb (principal) | CPT/HCPCS: 64721 ==

== ENCOUNTER 2025-05-17 09:14 | Outpatient (AMB) | payer OTHER, SELFPAY ==
--- NOTE | 2025-05-17 09:22 | MHC.OFFVIS ---
Vital Signs 05/17/25 09:34 Height 5 ft 3 in Weight 250 lb BMI 44.3 Intake Visit Reasons: PO RT CTR 05/02/25 AR Intake Note: Chanel 54 year old right hand dominant female who presents today status post right carpal tunnel release DOS: 05/02/25. Patient reports she is doing great. She has discontinued her pain medication and massaging around incision site. Sutures removed and steri strips applied. Allergies lisinopril (LISINOPRIL) Allergy (Unknown, Verified 05/17/25 09:34) UNKNOWN metoprolol (METOPROLOL) Adverse Reaction (Unknown, Verified 05/17/25 09:34) HEADACHES oxycodone (From PERCOCET) Adverse Reaction (Unknown, Verified 05/17/25 09:34) NAUSEA & VOMITING HPI HPI PO RT CTR 05/02/25 AR: Details: Chanel 54 year old right hand dominant female who presents today status post right carpal tunnel release DOS: 05/02/25. Patient reports she is doing great. She has discontinued her pain medication and massaging around incision site. Sutures removed and steri strips applied. COUNT INCLUDES THE [facility] Medical History GERD (gastroesophageal reflux disease) Hypertension Morbid obesity Breast calcification, right Surgical History History of tubal ligation Family History Paternal Aunt Breast cancer Social History Patient Tobacco Use Status: Current everyday Tobacco user Tobacco use type: Cigarette Cigarettes Per Day: 7 Female Reproductive History Menstrual Age of Menarche: 14 Review of Systems Const All systems reviewed & are unremarkable except as noted in HPI and below Physical Exam Vital Signs: BMI result Body Mass Index 44.3 Extrem Other: Neuro: Normal sensation of the tips of all digits of bilateral hands in the office today No thenar or intrinsic wasting. Good APB muscle firing and good finger cross. Vascular: Capillary refill brisk. ROM: Patient can make a fist and extend all their digits. Skin: Well approximated and well healing incision site noted of the volar right wrist No lacerations or abrasions noted. General: No ecchymosis. No erythema or evidence of infection. Assessment & Plan Assessment & Plan (1) Bilateral carpal tunnel syndrome: Code(s): G56.03 - Carpal tunnel syndrome, bilateral upper limbs Category: Medical Plan 1. Right carpal tunnel syndrome With good symptom resolution postoperatively Patient appears to be recovering well after surgery Patient is educated about the typical recovery course Sutures removed, Steri-Strips applied without issue No acute follow-up indicated, as patient appears to be recovering very well Patient is amenable to this plan Coding Level of Care Code Global (86623) Diagnoses Bilateral carpal tunnel syndrome G56.03
[2025-05-17 09:34] VITALS: BMI 44.3
--- OUTSIDE RECORDS SUMMARY | 2025-05-17 10:16 | XMS_ITS | Encounter Summary ---
Author Organization [employer] Address [address] [address] [place] [address] Care Team Providers Care Otr Hazmat Company Driver Name Role Phone Tona Hayes MD Primary Care Provider [phone] Encounter Details Date Type Department Care Team (Late st Contact Info) Description 03/28/2023 Orders Only [facility] [address] [place], [place] [phone] Sanjiv Paez MD [address] [place] [address] Social History Tobacco Use Types Packs/Day Years Used Date Smoking Tobacco: Former Cigarettes Smokeless Tobacco: Never Comments Unknown Sex and Gender Information Value Date Recorded Sex Assigned at Female 07/29/2022 10:15 AM EDT Legal Sex Female 10:15 AM EDT Gender Identity Female 07/29/2022 10:15 AM EDT Sexual Orientation Straight 07/29/2022 10 :15 AM EDT documented as of this encounter Plan of Treatment Upcoming Encounters Date Type Department Care Team (Late st Contact Info) Description 09/07/2025 3:00 PM EST Office Visit [facility] OPTOMETRY [address] [place] [address] Eliecer, Nabila, OD [address] [place] [address] documented as of this encounter Visit Diagnoses Not on filedocumented in this encounter Care Teams [employer] Driver Relationship Specialty Start Date End Date Tona Hayes MD [address] [place] [address] PCP - General Family Medicine 08/19/12 documented as of this encounter
== END 2025-05-17 09:47 | disposition home or self-care (01) ==
LOC: HO.HOS 09:15
PROVIDERS: PCP Student in an Organized Health Care Education/Training Program
DX: G56.03 Carpal tunnel syndrome, bilateral upper limbs (principal)
CPT/HCPCS: 99024

== ENCOUNTER 2025-06-13 08:27 | Outpatient (REF) | payer OTHER, SELFPAY ==
--- NOTE | ~2025-06-13 | MM_ITS ---
EXAMINATION: MM DIAGNOSTIC DIGITAL MAMMOGRAPHY, LEFT CLINICAL INFORMATION: This is a 6-month follow-up of left breast calcifications in the upper outer quadrant. COMPARISON: Comparison made to multiple prior, most recent December 14, 2024, and most remote October 05, 2022. TECHNIQUE: Left diagnostic mammogram is obtained with spot magnified compression views. FINDINGS: BREAST COMPOSITION: The breasts are heterogeneously dense, which may obscure small masses (ACR BI-RADS breast composition Category c). LEFT BREAST: Previously described grouped round calcifications in the upper outer quadrant middle/posterior depth are essentially unchanged from prior spot magnified compression views from November 2024. MM/MM diagnostic mammo unilat LT IMPRESSION: LEFT BREAST: Grouped round calcifications in the upper outer quadrant, essentially unchanged from November 2024. Probably benign. A 6-month follow-up is recommended as bilateral diagnostic mammogram with spot magnified compression views of the left breast calcifications. ASSESSMENT: BI-RADS 3 - Probably benign finding(s) - 6 month follow-up suggested RECOMMENDATION: 6 Month F/U Results were provided to the patient at time of visit by the technologist. This patient's information was entered into a reminder system with a target due date for their next mammogram. Electronically signed by: Lexx Cisneros MD 06/13/2025 09:32 AM EDT
--- OUTSIDE RECORDS SUMMARY | 2025-06-13 09:29 | XMS_ITS | Clinical Summary ---
Author Organization [employer] Address [address] [facility] 7[address] [place] [address] Care Team Providers Care Engineering Design Manager Name Role Phone Tona Hayes MD Primary Care Provider [phone] Allergies Active Allergy Reactions Criticality Noted Date [...] every day 12 g 11 3 Active cyclobenzaprine (Flexeril) 5 MG tablet Take 1 tablet (5 mg) by mouth if needed in the morning, at noon, and at bedtime for muscle spasms for up to 40 doses. 40 tablet 3 Active loratadine (Claritin) 10 MG tablet Take 1 tablet (10 mg) by mouth in the morning. 90 tablet 2 5 Active triamterene-hydro chlorothiazide (Maxzide-25) 37.5-25 MG tablet Take 1 tablet by mouth in the morning. 90 tablet 5 Active telmisartan (MIcarDIS) 20 MG tablet Take 1 tablet (20 mg) by mouth in the morning. 90 tablet 3 5 Active Calcium Carb-Cholecalcife rol (Oyster Shell Calcium + D3) 500-10 MG-MCG tabletIndications :Osteoporosis, unspecified osteoporosis type, unspecified pathological fracture presence Take 1 tablet by mouth in the morning. 30 tablet 11 5 Active sertraline (Zoloft) 50 MG tablet Take 1 tablet (50 mg) by mouth in the morning. 90 tablet 3 5 Active ibuprofen 800 MG tabletIndications :Pain, unspecified Take 1 tablet (800 mg) by mouth 3 times daily. 30 tablet 3 5 Active albuterol 108 (90 Base) MCG/ACT inhaler Inhale 2 puffs every 4 (four) hours if needed for wheezing or shortness of breath. 18 g 11 5 04/26/20 26 Active omeprazole (PriLOSEC) [address] capsule Take 1 capsule (20 mg) by mouth before breakfast and before evening meal. Do not crush or chew. 90 capsule 3 5 Active Active Problems [...] Encounters Date Type Department Care Team Description 04/25/2025 Refill [facility] [address] [place] [address] Tona Hayes MD Osteoporosis, unspecified osteoporosis type, unspecified pathological fracture presence; Pain, unspecified 04/07/2025 9:00 AM EDT Office Visit [facility] WALK[facility]IN [facility] [address] [place], [place] [phone] Thang Torres MD Traveler's diarrhea 04/07/2025 Travel 03/21/2025 Refill [facility] [address] [place] [address] Tona Hayes MD 03/18/2025 Refill [facility] [address] [place] [address] Tona Hayes MD from Last 3 Months Immunizations Immunization [...] is your housing situation today? I have balwinderrebeka mclain 04/09/[address] you [...] Sign Reading Time Taken Comments Blood Pressure 130/78 04/07/2025 9:08 AM EDT Pulse 64 04/07/2025 9:08 AM EDT Temperature 36.9 C (98.4 F) 04/07/2025 9:08 AM EDT Respiratory Rate 20 04/07/2025 9:08 AM EDT Oxygen Saturation 98% 12/27/2024 9:14 AM EDT Inhaled Oxygen Concentration - - Weight 124 kg (272 lb 9.6 oz) 04/07/2025 9:08 AM EDT Height 160 cm (5' 3 ) 04/07/2025 9:08 AM EDT Body Mass Index 48.29 04/07/2025 9:08 AM EDT Plan of Treatment Upcoming Encounters Date Type Department Care Team (Late st Contact Info) Description 09/07/2025 3:00 PM EST Office Visit [facility] OPTOMETRY [address] [place] [address] Eliecer, Nabila, OD [address] [place] [address] Health Maintenance Due Date Last Done Comments CT Colonography 1972 FIT DNA/Cologuard 1972 FIT 1972 FOBT 1972 HIV Screening 1972 Sigmoidoscopy 1972 Disability Screening 1972 Alcohol/Substance Use Screening 1984 Hepatitis C Screening 1990 Pneumococcal Vaccine: 50+ Years (1 of 2 - PCV) 1991 Dental Prophylaxis 03/05/2014 09/03/2013 Dental Oral Exam 04/22/2014 10/22/2013, 07/10/2012 Dental X-Ray: Bitewings 09/04/2014 09/03/2013, 05/19 Dental X-Ray: Full Mouth 05/20/2015 05/19/2012 SDOH Screening 04/09/2025 04/09/2024 Depression Screening 04/15/2025 04/15/2024, 04/15/20 24 Diabetes: Hemoglobin A1C 04/15/2025 024, 04/14/2023, 06/27/2021 COVID-19 Vaccine ( season) 2025 06/27/2023, 08/30/2022, 08/17/2021, Additional history exists Influenza Vaccine (#1) 2025 , 06/19/2023, 06/13/2022, Additional history exists Diagnostic Breast Imaging 06/16/2025 12/14/2024 Tobacco Screening [...] 06/03/20 23 Zoster Vaccines Completed 08/05/2023, 06/03/2023 HIB Vaccines Aged Out No longer eligi [...] Procedure Name Priority Date/Time Associated Diagnosis Comments POCT INFLUENZA A (ID NOW RAPID MOLECULAR) Routine 04/07/2025 9:20 AM EDT Traveler's diarrhea POCT INFLUENZA B (ID NOW RAPID MOLECULAR) Routine 04/07/2025 9:19 AM EDT Traveler's diarrhea POCT RAPID COVID ANTIGEN Routine 04/07/2025 9:18 AM EDT Traveler's diarrhea BI MAMMOGRAM ADDITIONAL VIEWS LEFT Routine 12/14/2024 [...] Recently Relevant to Health Maintenance Results * POCT Rapid Influenza A BARKLEY ID NOW (04/07/2025 9:20 AM EDT) Pathologist [facility] Influenza A Negative Negative, Indeterminate [facility] QC Media Lot # [id number] [facility] Lot# Expiration Date [facility] Swab 04/07/2025 9:20 AM EDT us Thang Torres MD POINT OF CARE TEST ENTER/EDIT OR DERABLES Final Result Performing Organization Address City/[facility]/ZIP Co de Phone Number [facility] [address] [place] [phone] * POCT Rapid Influenza B BARKLEY ID NOW (04/07/2025 9:19 AM EDT) [facility] Influenza B Negative Negative, Indeterminate [facility] QC Media Lot # [id number] [facility] Lot# Expiration Date [facility] Swab 04/07/2025 9:19 AM EDT us Thang Torres MD POINT OF CARE TEST ENTER/EDIT OR DERABLES Final Result Performing Organization Address [facility] Co de Phone Number [facility] [address] [place] [phone] * POCT Rapid Covid-19 BinaxNOW (04/07/2025 9:18 AM EDT) Pathologist [facility] Rapid COVID Ag Negative QC Media Lot # [id number] Lot# Expiration Date Swab 04/07/2025 9:18 AM EDT us Thang Torres MD POINT OF CARE TEST ENTER/EDIT OR DERABLES Final Result * Left mammogram, additional views (12/14/2024 12:10 PM EDT) Anatomical Region Laterality Modality Breast Left Mammography 12/14/2024 12:1 0 PM EDT Narrative 12/14/2024 12:52 PM EDT [facility] [address] [place] [address] Dr. Milian, [place] [address] Mammography Report Signed Patient: Chanel Ibrahim MR#: [id number] : 1970 Acct:[id number] Age/Sex: 54 / F ADM Date: 12/14/24 Loc: HO.MAMMO Attending Dr: Tona Hayes MD Ordering Physician: Tona Hayes MD Results: 3.6MPro bably Benign Finding - Short 6 M F/U Suggested Date of Service: 12/14/24 Follow Up: 6 Month F/U Procedure(s): MM added views LT Accession Number(s): [id number] cc: Tona Hayes MD EXAMINATION: MM DIAGNOSTIC [...] Susan Victoria DO 12/14/2024 12:49 PM EDT Dictated By: Susan Victoria DO Signed By: <Electronically signed by Susan Victoria DO in OV> 12/14/24 1249 DD/ 1210 TD/TT: 12/14/24 1225 Cloth Tester: Procedure Note Donotuseinterpreter, Image - 12/14/2024 Rukhsana [facility] [address] Milian, [place] [address] Mammography Report Signed Patient: Francisco J Ibrahim#: [id number] : 1970Acct:[id number] Age/Sex: 54 / FADM Date: 12/14/24 Loc: HO.MAMMO Attending Dr: Tona Hayes MD Ordering Physician: Tona Hayes MDResults: 3.6MPro bably Benign Finding - Short 6 M F/U Suggested Date of Service: 12/14/24Follow Up: 6 Month F/U Procedure(s): MM added views LT Accession Number(s): [id number] cc: Tona Hayes MD EXAMINATION: MM DIAGNOSTIC [...] Susan Victoria DO 12/14/2024 12:49 PM EDT Dictated By: Susan Victoria DO Signed By: <Electronically signed by Susan Victoria DO in OV> 12/14/24 1249 DD/ 1210 TD/TT: 12/14/24 1225 Cloth Tester: Tona Hayes MD IMG BI PROCEDURES Final Result * Hemoglobin A1c (04/15/2024 12:00 AM EDT) Hemoglobin A1c 5.8 <6.0 % [facility] Comment:Hemoglobin A1C Refer ence Range Adults: 4.8 - 6.0 % Non diabetic: < 6.0 % Goal: < 7.0 %Additional Action Suggested: > 8.0 %Note: Hemoglobin A1c results are invalid for patients with abnormal amounts of HbF. Blood transfusions may impact the HbA1c concentration in the patient sample. Estimated Average Glucose 120 mg/dL [facility] Comment:eAG = Estimated ave rage glucose which is %A1C expressed asaverage glucose, using the formula of the E2K-SmslibqJslghgt Glucose study (ADAG), Diabetes Care, Vol.31,#8,Apr. 2007 Blood Venous blood specimen / Unknown 04/15/2024 04/15/2024 Tona Hayes MD LAB BLOOD ORDERABLES Final Resul t [facility] [address] [place] [phone] * (ABNORMAL) Lipid Panel, Standard (04/15/2024 12:00 AM EDT) Triglycerides 156(H) <150 mg/dL [facility] Comment:Desirable Triglyceri de: less than 150 mg/dLBorderline High Triglyceride 150-199 mg/dLHigh Triglyceride: 200-499 mg/dLVery High Triglyceride: greater than or equal to 5OO mg/dL Cholesterol 183 <200 mg/dL [facility] Comment:Desirable Cholestero l: less than 200 mg/dLBorderline High Cholesterol: 200-239 mg/dLHigh Cholesterol: greater than 239 mg/dL LDL Cholesterol Calculated 117(H) <100 mg/dL [facility] Comment:Desirable LDL: less than 100 mg/dLNear Optimal/Above Optimal LDL: 110- 129 mg/dLBorderline High LDL: 130-159 mg/dLHigh LDL: 160-189 mg/dLVery High LDL: greater than or equal to 190 mg/dL HDL Cholesterol 35(L) >40 mg/dL [facility] Comment:Desirable HDL: great er than 40 mg/dL Note: This HDL assay may give artificially low results in patients with liver disease. Blood Venous blood specimen / Unknown 04/15/2024 04/15/2024 us Tona Hayes MD LAB BLOOD ORDERABLES Final Resul t [facility] [address] [place] [address] [phone] * Image-Guided Pap with Age-Based Screening Protocols (01/21/2023 9:43 AM EDT) Comment [facility] Comment: This order for age-based cervical cancer and STI screening follows ACOG guidelines(PB 168, 140, VUF308). See individual assays for performing site location. Clinical Information: None given [facility] LMP: NONE GIVEN [facility] Prev. PAP: NONE GIVEN [facility] Prev. BX: NONE GIVEN [facility] SOURCE: None given [facility] Statement Of Adequacy: [employer] Comment: Satisfactory for evaluation. Endocervical/transformation zone component present. Interpretation/ Result: Negative for intraepithelial lesion or malignancy. [employer] COMMENT: This Pap test has been evaluated with computer assisted technology. [facility] Cytotechnologis t: [employer] Comment: SXA, CT(ASCP) CT screening location: [address] [address] (Always Message) [facility] Comment: EXPLANATORY NOTE: The Pap is a [...] HPV nRNA E6/E7 Not Detected Not Detected Tymphany [place] [employer] Comment: Methodology: Naphthol Soaping Machine Operator-Mediated Amplification This assay detects E6/E7 viral messenger RNA (mRNA) from 14 high-risk HPV types (16,18,31,33,35,39,45,51,52,56,58,59,66,68). Cervical sources are required for HPV testing. If a vaginal source from a patient who has had a total hysterectomy with removal of cervix was submitted, please contact the testing laboratory for alternative testing options. For additional information, please refer to http://education.[employer]/faq/DRW553k8 (This link if provided for information/ educational purposes only.) Cytology specimen container (physical object) 01/21/2023 9:43 AM EDT 01/22/2023 6:22 AM EDT Adeola MADERA LAB BLOOD ORDERABLES Jannet l Result [facility] [address], [facility] [place] [address] Tymphany [facility] [address] [place] [phone] from Last 3 Months or Most Recently Relevant to Health Maintenance Insurance [id number] [id number] [facility] HSN PARTIAL DENTAL - HSN PARTIAL (MEDICAID) [address] Care Teams Engineering Design Manager Relationship Specialty Start Date End Date Tona Hayes MD [address] [place] [phone] PCP - General Family Medicine 08/19/12
--- OUTSIDE RECORDS SUMMARY | 2025-06-13 09:29 | XMS_ITS | Encounter Summary ---
Author Organization [employer] Address [address] [facility] [address] [place] [address] Care Team Providers Care Cultural Anthropology Professor Name Role Phone Tona Hayes MD Primary Care Provider [phone] Reason for Visit * Reason Comments Med Refill Encounter Details Date Type Department Care Team (Late Contact Info) Description 09/02/2022 Refill [facility] MEDIC[facility] [address] [place] [address] Tona Hayes MD [address] [place], [place] [phone] Social History Tobacco Use Types Packs/Day Years [...] Encounters Date Type Department Care Team (Late Contact Info) Description 09/07/2025 3:00 PM EST Office Visit [facility] OPTOMETRY [address] [place] [address] Eliecer, Nabila, OD [address] [place] [address] documented as of this encounter Visit Diagnoses Not on filedocumented in this encounter Care Teams Cultural Anthropology Professor Relationship Specialty Start Date End Date Tona Hayes MD [address] [place] [phone] PCP - General Family Medicine 08/19/12 documented as of this encounter
--- OUTSIDE RECORDS SUMMARY | 2025-06-13 09:29 | XMS_ITS | Encounter Summary ---
Author Organization [employer] Address [address] [facility] [address] [place] [address] Care Team Providers Care Rack Washer Name Role Phone Tona Hayes MD Primary Care Provider [phone] Encounter Details Date Type Department Care Team (Late st Contact Info) Description 11/13/2022 Orders Only [facility] [address] [place], [place] [phone] Sanjiv Paez MD [address] [place] [address] Nasal congestion (Primary Dx) Social History Tobacco [...] Description 09/07/2025 3:00 PM EST Office Visit [facility] OPTOMETRY [address] [place] [address] Eliecer, Nabila, OD [address] [place] [address] documented as of this encounter Visit Diagnoses Diagnosis Nasal congestion- Primary Other diseases of nasal cavity and sinuses documented in this encounter Care Teams Rack Washer Relationship Specialty Start Date End Date Tona Hayes MD [address] [place] [address] PCP - General Family Medicine 08/19/12 documented as of this encounter
--- OUTSIDE RECORDS SUMMARY | 2025-06-13 09:29 | XMS_ITS | Encounter Summary ---
Author Organization [employer] Address [address] [facility] [address] [place] [address] Care Team Providers Care Putty And Patch Worker Name Role Phone Tona Hayes MD Primary Care Provider [phone] Encounter Details Date Type Department Care Team (Late st Contact Info) Description 03/28/2023 Orders Only [facility] [address] [place], [place] [phone] Sanjiv Paez MD [address] [place] [address] Social History Tobacco Use Types Packs/Day Years [...] Description 09/07/2025 3:00 PM EST Office Visit [facility] OPTOMETRY [address] [place] [address] Eliecer, Nabila, OD [address] [place] [address] documented as of this encounter Visit Diagnoses Not on filedocumented in this encounter Care Teams Putty And Patch Worker Relationship Specialty Start Date End Date Tona Hayes MD [address] [place] [address] PCP - General Family Medicine 08/19/12 documented as of this encounter
--- OUTSIDE RECORDS SUMMARY | 2025-06-13 09:29 | XMS_ITS | Encounter Summary ---
Author Organization [employer] Address [address] [facility] [address] [place] [address] Care Team Providers Care Safety Associate Name Role Phone Tona Hayes MD Primary Care Provider [phone] Encounter Details Date Type Department Care Team (Late Contact Info) Description 05/27/2023 Orders Only [facility] [address] [place], [place] [phone] Sanjiv Paez MD [address] [place], [place] [phone] Social History Tobacco Use Types Packs/Day Years [...] Description 09/07/2025 3:00 PM EST Office Visit [facility] OPTOMETRY [address] [place], [place] [phone] Eliecer, Nabila, OD [address] [place], [place] [phone] documented as of this encounter Visit Diagnoses Not on filedocumented in this encounter Additional Health Concerns Assessment Noted Time PHQ-9 Depression Total Score: 0 04/07/20 23 9:14 AM EDT documented as of this encounter Care Teams Safety Associate Relationship Specialty Start Date End Date Tona Hayes MD [address] [place] [address] PCP - General Family Medicine 08/19/12 documented as of this encounter
== END 2025-06-13 08:28 | disposition home or self-care (01) ==
LOC: HO.MAMMO 08:27
PROVIDERS: PCP Student in an Organized Health Care Education/Training Program; Visit Provider Student in an Organized Health Care Education/Training Program
DX: R92.1 Mammographic calcification found on diagnostic imaging of breast (principal)
CPT/HCPCS: 77062; 77065

== ENCOUNTER → 2025-06-13 09:00 | Outpatient (BNV) | payer OTHER, SELFPAY | PROVIDERS: PCP Student in an Organized Health Care Education/Training Program; Visit Provider Radiology Body Imaging | DX: R92.1 Mammographic calcification found on diagnostic imaging of breast (principal) | CPT/HCPCS: 77061; 77065 ==

== ENCOUNTER 2025-07-05 13:29 | Outpatient (REF) | payer OTHER, SELFPAY ==
--- OUTSIDE RECORDS SUMMARY | 2025-07-05 16:33 | XMS_ITS | Encounter Summary ---
Author Organization [employer] Address [address] [facility] 7t [place] [address] Care Team Providers Care Doctor Of Audiology Name Role Phone Tona Hayes MD Primary Care Provider [phone] Encounter Details Date Type Department Care Team (Late st Contact Info) Description 11/13/2022 Orders Only [facility] CHC MED & PEDS [address] [place] [address] Sanjiv Paez MD [address] [place] [address] Nasal congestion (Primary Dx) Social History Tobacco [...] Care Team (Late st Contact Info) Description 08/01/2025 9:30 AM EST Office Visit [facility] CH[facility] MED & PEDS [address] [place] [address] Maritza Chowdhury FNP [address] [place] [address] 09/07/2025 3:00 PM EST Office Visit [facility] OPTOMETRY [address] [place] [address] Nabila Gonzáles, OD 230 [place] [address] documented as of this encounter Visit Diagnoses Diagnosis Nasal congestion- Primary Other diseases of nasal cavity and sinuses documented in this encounter Care Teams Doctor Of Audiology Relationship Specialty Start Date End Date Tona Hayes MD [address] [place] [address] PCP - General Family Medicine 08/19/12 documented as of this encounter
--- OUTSIDE RECORDS SUMMARY | 2025-07-05 16:33 | XMS_ITS | Encounter Summary ---
Author Organization [employer] Address [address] [facility] [address] 7t [place] [address] Care Team Providers Care Field Artillery Targeting Technician Name Role Phone Tona Hayes MD Primary Care Provider [phone] Encounter Details Date Type Department Care Team (Late Contact Info) Description 03/28/2023 Orders Only [facility] WALK-IN CENTER [address] [place] [address] Sanjiv Paez MD [address] [place] [address] Social History Tobacco Use Types Packs/Day Years [...] Department Care Team (Late Contact Info) Description 08/01/2025 9:30 AM EST Office Visit [facility] CHC MED & PEDS [address] [place] [address] Maritza Chowdhury, ASSEMBLY LINE BRAZER 505 [place], [place] [phone] 09/07/2025 3:00 PM EST Office Visit [facility] OPTOMETRY [address] [place] [address] Nabila Gonzáles, OD 230 [place] [address] documented as of this encounter Visit Diagnoses Not on filedocumented in this encounter Care Teams Field Artillery Targeting Technician Relationship Specialty Start Date End Date Tona Hayes MD [address] [place] [phone] PCP - General Family Medicine 08/19/12 documented as of this encounter
--- OUTSIDE RECORDS SUMMARY | 2025-07-05 16:33 | XMS_ITS | Encounter Summary ---
Author Organization [employer] Address [address] [facility] [address] 7t [place] [address] Care Team Providers Care Divisional Merchandising Manager Name Role Phone Tona Hayes MD Primary Care Provider [phone] Encounter Details Date Type Department Care Team (Late st Contact Info) Description 05/27/[address] [facility] WALK[facility]IN C[facility] [address] [place], [place] [phone] Sanjiv Paez MD [address] [place], [place] [phone] Social History Tobacco Use Types Packs/Day Years [...] Description 08/01/2025 9:30 AM EST Office Visit [facility] CHC MED & PEDS [address] [place], [place] [phone] Maritza Chowdhury FNP [address] [place], [place] [phone] 09/07/2025 3:00 PM EST Office Visit [facility] OPTOMETRY [address] [place], [place] [phone] Nabila Gonzáles, BREN 230 [place] [address] documented as of this encounter Visit Diagnoses Not on filedocumented in this encounter Additional Health Concerns Assessment Noted Time PHQ-9 Depression Total Score: 0 04/07/20 23 9:14 AM EDT documented as of this encounter Care Teams Divisional Merchandising Manager Relationship Specialty Start Date End Date Tona Hayes MD [address] [place] [address] PCP - General Family Medicine 08/19/12 documented as of this encounter
--- OUTSIDE RECORDS SUMMARY | 2025-07-05 16:33 | XMS_ITS | Encounter Summary ---
Author Organization [employer] Address 75 [facility] 7t [place] [address] Care Team Providers Care Director Of Guidance Name Role Phone Tona Hayes MD Primary Care Provider [phone] Reason for Visit * Reason Comments Med Refill Encounter Details Date Type Department Care Team (Late Contact Info) Description 09/02/2022 Refill [facility] MEDICINE 230 [place], [place] [phone] Tona Hayes MD 505 [place], [place] [phone] Social History Tobacco Use Types Packs/Day Years [...] Description 08/01/2025 9:30 AM EST Office Visit [facility] CHC MED & PEDS 505 [place], [place] [phone] Maritza Chowdhury FNP 505 [place], [place] [phone] 09/07/2025 3:00 PM EST Office Visit [facility] OPTOMETRY [address] [place] [address] Nabila Gonzáles, OD 230 [place] [address] documented as of this encounter Visit Diagnoses Not on filedocumented in this encounter Care Teams Director Of Guidance Relationship Specialty Start Date End Date Tona Hayes MD 230 [place] [address] PCP - General Family Medicine 08/19/12 documented as of this encounter
--- OUTSIDE RECORDS SUMMARY | 2025-07-05 16:34 | XMS_ITS | Encounter Summary ---
Author Organization [employer] Address 75 [facility] 7t [place] [address] Care Team Providers Care Log Preparer Name Role Phone Tona Hayes MD Primary Care Provider Reason for Referral * Imaging (Routine) - Authorized Specialty Diagnoses / Procedures Referred By [facility] ron Referred To Contact Radiology Diagnoses Upper abdominal discomfort Procedures US Abdomen Complete Sanjiv Paez MD 230 [place] [address] Phone: tel: fax: [address] Phone: tel: fax: Referral ID Status Reason Start Date Expiration Date V isits Requested Visits Authorized [id number] Authorized 07/05/2025 07/05/2026 1 1 Encounter Details Date Type Department Care Team (Late st Contact Info) Description 07/05/2025 Orders Only [facility] MEDICINE 230 [place], [place] [phone] Sanjiv Paez MD [address] [place], [place] [phone] Upper abdominal discomfort (Primary Dx); Diarrhea, unspecified type Social History Tobacco Use Types Packs/Day Years [...] Upcoming Encounters Date Type Department Care Team ([facility] st Contact Info) Description 08/01/2025 9:30 AM EST Office Visit [facility] MED & PEDS [address] [place] [address] Maritza Chowdhury FNP 505 [place] [address] 09/07/2025 3:00 PM EST Office Visit [facility] OPTOMETRY [address] [place] [address] Nabila Gonzáles, OD 230 [place] [address] Scheduled Orders Name Type Priority Associated Diagnoses Orde r Schedule CDiff Gene PCR Lab Routine Diarrhea, unspecified type Expected: 07/05/2025 (Approximate), Expires: 07/05/2026 Gastrointestinal panel Microbiology Routine Diarrhea, unspecified type Expected: 07/05/2025 (Approximate), Expires: 07/05/2026 Helicobacter pylori Antigen, EIA, Stool Lab Routine Diarrhea, unspecified type Expected: 07/05/2025 (Approximate), Expires: 07/05/2026 Ova and Parasites, Concentrate and Permanent Smear Microbiology Routine Diarrhea, unspecified type Expected: 07/05/2025 (Approximate), Expires: 07/05/2026 US Abdomen Complete Imaging Routine Upper abdominal discomfort Expected: 07/05/2025, Expires: 07/05/2026 documented as of this encounter Visit Diagnoses Diagnosis Upper abdominal discomfort- Primary Diarrhea, unspecified type documented in this encounter Additional Health Concerns Assessment Noted Time PHQ-9 Depression Total Score: 0 04/15/20 24 9:20 AM EDT documented as of this encounter Care Teams Log Preparer Relationship Specialty Start Date End Date Tona Hayes MD [address] [place] [address] PCP - General Family Medicine 08/19/12 documented as of this encounter
--- OUTSIDE RECORDS SUMMARY | 2025-07-05 16:34 | XMS_ITS | Encounter Summary ---
Author Organization [employer] Address 75 [facility] 7t [place] [address] Care Team Providers Care Content Architect Name Role Phone Tona Hayes MD Primary Care Provider [phone] Encounter Details Date Type Department Care Team ([facility] st Contact Info) Description 06/13/2025 Results Follow-Up [facility] CHC MED & PEDS 505 [place], [place] [phone] Tona Hayes MD 505 [place], [place] [phone] BI Mammogram Diagnostic Left Social History Tobacco Use Types Packs/Day Years [...] as of this encounter Miscellaneous Notes * Result Encounter Note - Tona Hayes MD - 06/13/2025 10:17 AM EDT 6mnths follow up documented in this encounter Plan of Treatment Upcoming Encounters Date Type Department Care Team (Late st Contact Info) Description 08/01/2025 9:30 AM EST Office Visit [facility] CHC MED & PEDS 505 [place] [address] Maritza Chowdhury, STAGE SET DESIGNER 505 [place] [address] 09/07/2025 3:00 PM EST Office Visit [facility] OPTOMETRY [address] [place] [address] Nabila Gonzáles, OD [address] [place] [address] documented as of this encounter Visit Diagnoses Not on filedocumented in this encounter Additional Health Concerns Assessment Noted Time PHQ-9 Depression Total Score: 0 04/15/20 24 9:20 AM EDT documented as of this encounter Care Teams Content Architect Relationship Specialty Start Date End Date Tona Hayes MD [address] [place] [phone] PCP - General Family Medicine 08/19/12 documented as of this encounter
--- OUTSIDE RECORDS SUMMARY | 2025-07-05 16:34 | XMS_ITS | Clinical Summary ---
Author Organization [employer] Address 75 [facility] 7t [place] [address] Care Team Providers Care Business Assistant Name Role Phone Tona Hayes MD Primary Care Provider Allergies Active Allergy Reactions Criticality Noted Date [...] Encounters Date Type Department Care Team Description 07/05/2025 Orders Only [facility] MEDICINE [address] [place] [address] Sanjiv Paez MD Upper abdominal discomfort (Primary Dx); Diarrhea, unspecified type 06/13/2025 Results Follow-Up [facility] MED & PEDS [address] [place] [address] Tona Hayes MD BI Mammogram Diagnostic Left 06/13/2025 Orders Only [facility] MED & PEDS [address] [place] [address] Tona Hayes MD 04/25/2025 Refill [facility] MED & PEDS [address] [place] [address] Tona Hayes MD Osteoporosis, unspecified osteoporosis type, unspecified pathological fracture presence; Pain, unspecified 04/07/2025 9:00 AM EDT Office Visit [facility] WALK-IN CENTER 230 [place] [address] Thang Torres MD Traveler's diarrhea 04/07/2025 Travel from Last 3 Months Immunizations Immunization Administration [...] Description 08/01/2025 9:30 AM EST Office Visit [facility] CHC MED & PEDS [address] [place] [address] Phalen, Maritza, SLEEP LAB TECHNICIAN 505 [place] [address] 09/07/2025 3:00 PM EST Office Visit [facility] OPTOMETRY [address] [place] [address] Eliecer, Nabila, OD [address] [place] [address] Health Maintenance Due Date Last Done Comments [...] 04/09/2025 04/09/2024 Depression Screening 04/15/2025 04/15/2024, 04/15/20 Diabetes: Hemoglobin A1C 04/15/2025 024, 04/14/2023, 06/27/2021 COVID-19 Vaccine ( season) 2025 06/27/2023, 08/30/2022, 08/17/2021, Additional history exists Influenza Vaccine (#1) 2025 , 06/19/2023, 06/13/2022, Additional history exists Diagnostic Breast Imaging 12/11/2025 06/13/2025, Tobacco Screening 12/27/2025 12/27/2024 Cervical Cancer Screening [...] Priority Date/Time Associated Diagnosis Comments BI MAMMOGRAM DIAGNOSTIC LEFT Routine 06/13/2025 8:35 AM EDT POCT INFLUENZA A (ID NOW RAPID MOLECULAR) Routine 04/07/2025 9:20 AM EDT Traveler's diarrhea POCT INFLUENZA B (ID NOW RAPID MOLECULAR) Routine 04/07/2025 9:19 AM EDT Traveler's diarrhea POCT RAPID COVID ANTIGEN Routine 04/07/2025 9:18 AM EDT Traveler's diarrhea HEMOGLOBIN A1C Routine 04/15/2024 12:00 AM EDT [...] Recently Relevant to Health Maintenance Results * BI Mammogram Diagnostic Left (06/13/2025 8:35 AM EDT) Anatomical Region Laterality Modality Breast Left Mammography 06/13/2025 8:35 AM EDT Narrative 06/13/2025 9:35 AM EDT [facility] [address] [place] [address] Mammography Report Signed Patient: Chanel Ibrahim MR#: [id number] : 1970 Acct:[id number] Age/Sex: 55 / F ADM Date: 06/13/25 Loc: HO.MAMMO Attending Dr: Tona Hayes MD Ordering Physician: Tona Hayes MD Results: 3.6MPro bably Benign Finding - Short 6 M F/U Suggested Date of Service: 06/13/25 Follow Up: 6 Month F/U Procedure(s): MM diagnostic mammo unilat LT Accession Number(s): [id number] cc: Tona Hayes MD Reason For Exam: LT BR 6MO F/U CALS. EXAMINATION: MM DIAGNOSTIC DIGITAL MAMMOGRAPHY, LEFT CLINICAL INFORMATION: This is a 6-month follow-up of left breast calcifications in the upper outer quadrant. COMPARISON: Comparison made to multiple prior, most recent December 14, 2024, and most remote October 05, 2022. TECHNIQUE: Left diagnostic mammogram is obtained with spot magnified compression views. FINDINGS: BREAST COMPOSITION: The breasts are heterogeneously dense, which may obscure small masses (ACR BI-RADS breast composition Category c). LEFT BREAST: Previously described grouped round calcifications in the upper outer quadrant middle/posterior depth are essentially unchanged from prior spot magnified compression views from November 2024. MM/MM diagnostic mammo unilat LT IMPRESSION: LEFT BREAST: Grouped round calcifications in the upper outer quadrant, essentially unchanged from November 2024. Probably benign. A 6-month follow-up is recommended as bilateral diagnostic mammogram with spot magnified compression views of the left breast calcifications. ASSESSMENT: BI-RADS 3 - Probably benign finding(s) - 6 month follow-up suggested RECOMMENDATION: 6 Month F/U Results were provided to the patient at time of visit by the technologist. This patient's information was entered into a reminder system with a target due date for their next mammogram. Electronically signed by: Lexx Cisneros MD 06/13/2025 09:32 AM EDT Dictated By: Lexx Cisneros MD Signed By: <Electronically signed by Lexx Cisneros MD in OV> 06/13/25931 DD/ 4 TD/TT: 06/13/25919 Airport Engineer: Procedure Note Donotuseinterpreter, Image - 06/13/2025 [facility] [address] [place], [place] [address] Mammography Report Signed Patient: Francisco J Ibrahim#: [id number] : 1970Acct:[id number] Age/Sex: 55 / FADM Date: 06/13/25 Loc: HO.MAMMO Attending Dr: Tona Hayes MD Ordering Physician: Tona Hayes MDResults: 3.6MPro bably Benign Finding - Short 6 M F/U Suggested Date of Service: 06/13/25Follow Up: 6 Month F/U Procedure(s): MM diagnostic mammo unilat LT Accession Number(s): [id number] cc: Tona Hayes MD Reason For Exam: LT BR 6MO F/U CALS. EXAMINATION: MM DIAGNOSTIC DIGITAL MAMMOGRAPHY, LEFT CLINICAL INFORMATION: This is a 6-month follow-up of left breast calcifications in the upper outer quadrant. COMPARISON: Comparison made to multiple prior, most recent December 14, 2024, and most remote October 05, 2022. TECHNIQUE: Left diagnostic mammogram is obtained with spot magnified compression views. FINDINGS: BREAST COMPOSITION: The breasts are heterogeneously dense, which may obscure small masses (ACR BI-RADS breast composition Category c). LEFT BREAST: Previously described grouped round calcifications in the upper outer quadrant middle/posterior depth are essentially unchanged from prior spot magnified compression views from November 2024. MM/MM diagnostic mammo unilat LT IMPRESSION: LEFT BREAST: Grouped round calcifications in the upper outer quadrant, essentially unchanged from November 2024. Probably benign. A 6-month follow-up is recommended as bilateral diagnostic mammogram with spot magnified compression views of the left breast calcifications. ASSESSMENT: BI-RADS 3 - Probably benign finding(s) - 6 month follow-up suggested RECOMMENDATION: 6 Month F/U Results were provided to the patient at time of visit by the technologist. This patient's information was entered into a reminder system with a target due date for their next mammogram. Electronically signed by: Lexx Cisneros MD 06/13/2025 09:32 AM EDT Workstation: [id number] Dictated By: Lexx Cisneros MD Signed By: <Electronically signed by Lexx Cisneros MD in OV> 06/13/25 0932 DD/ 0835 TD/TT: 06/13/25 0920 Airport Engineer: Tona Hayes MD IM BI PROCEDURES Edited Result - Final * POCT Rapid Influenza A BARKLEY ID NOW (04/07/2025 9:20 AM EDT) Influenza A Negative Negative, Indeterminate [facility] QC Media Lot # [id number] [facility] Lot# Expiration Date [facility] Swab 04/07/2025 9:20 AM EDT Thang Torres MD POINT OF CARE TEST ENTER/EDIT OR DERABLES Final Result [facility] [address] [place] [phone] * POCT Rapid Influenza B BARKLEY ID NOW (04/07/2025 9:19 AM EDT) Pathologist [facility] Influenza B Negative Negative, Indeterminate [facility] QC Media Lot # [id number] [facility] Lot# Expiration Date [facility] Swab 04/07/2025 9:19 AM EDT Thang Torres MD POINT OF CARE TEST ENTER/EDIT OR DERABLES Final Result Performing Organization Address [facility] Co de Phone Number [facility] [address] [place] [phone] * POCT Rapid Covid-19 BinaxNOW (04/07/2025 9:18 AM EDT) [facility] Rapid COVID Ag Negative QC Media Lot # [id number] Lot# Expiration Date Swab 04/07/2025 9:18 AM EDT Result [facility] Thang Torres MD POINT OF CARE TEST ENTER/EDIT OR DERABLES Final Result * Hemoglobin A1c (04/15/2024 12:00 AM EDT) [facility] Hemoglobin A1c 5.8 <6.0 % [facility] Comment:Hemoglobin A1C Refer ence Range Adults: 4.8 - 6.0 % Non diabetic: < 6.0 % Goal: < 7.0 %Additional Action Suggested: > 8.0 %Note: Hemoglobin A1c results are invalid for patients with abnormal amounts of HbF. Blood transfusions may impact the HbA1c concentration in the patient sample. Estimated Average Glucose 120 mg/dL [facility] Comment:eAG = Estimated ave rage glucose which is %A1C expressed asaverage glucose, using the formula of the [id number] Glucose study (ADAG), Diabetes Care, Vol.31,#8,Apr. 2007 Blood Venous blood specimen / Unknown 04/15/2024 04/15/2024 Tona Hayes MD LAB BLOOD ORDERABLES Final Resul t Performing Organization Address [facility] Co de Phone Number [facility] [address] [place] [address] [phone] * (ABNORMAL) Lipid Panel, Standard (04/15/2024 12:00 AM EDT) Triglycerides 156(H) <150 mg/dL [facility] Comment:Desirable Triglyceri de: less than 150 mg/dLBorderline High Triglyceride 150-199 mg/dLHigh Triglyceride: 200-499 mg/dLVery High Triglyceride: greater than or equal to 5OO mg/dL Cholesterol 183 <200 mg/dL [facility] Comment:Desirable Cholestero l: less than 200 mg/dLBorderline High Cholesterol: 200-239 mg/dLHigh Cholesterol: greater than 239 mg/dL LDL Cholesterol Calculated 117(H) <100 mg/dL [facility] Comment:Desirable LDL: less than 100 mg/dLNear Optimal/Above Optimal LDL: 110- 129 mg/dLBorderline High LDL: 130-159 mg/dLHigh LDL: 160-189 mg/dLVery High LDL: greater than or equal to 190 mg/dL HDL Cholesterol 35(L) >40 mg/dL [facility] Comment:Desirable HDL: great er than 40 mg/dL Note: This HDL assay may give artificially low results in patients with liver disease. Blood Venous blood specimen / Unknown 04/15/2024 04/15/2024 Tona Hayes MD LAB BLOOD ORDERABLES Final Resul t Performing Organization Address [facility] Co de Phone Number [facility] [address] [place] [address] [phone] * Image-Guided Pap with Age-Based Screening Protocols (01/21/2023 9:43 AM EDT) Comment [employer] Comment: This order for age-based cervical cancer and STI screening follows ACOG guidelines(PB 168, 140, CWP064). See individual assays for performing site location. Clinical Information: None given [facility] LMP: NONE GIVEN [employer] [facility] Prev. PAP: NONE GIVEN [employer] [place] [facility] Prev. BX: NONE GIVEN [employer] [place] [facility] SOURCE: None given [employer] [place] [facility] Statement Of Adequacy: [employer] [place] [employer] Comment: Satisfactory for evaluation. Endocervical/transformation zone component present. Interpretation/ Result: Negative for intraepithelial lesion or malignancy. [employer] [place] [employer] COMMENT: This Pap test has been evaluated with computer assisted technology. [employer] [place] [employer] Cytotechnologis t: [employer] [place] 2,10E+07 Diagnost Comment: SXA, CT(ASCP) CT screening location: [address] [address] (Always Message) [employer] Comment: EXPLANATORY NOTE: The Pap is a [...] HPV nRNA E6/E7 Not Detected Not Detected [employer] Comment: Methodology: Line Maintenance Supervisor-Mediated Amplification This assay detects E6/E7 viral messenger RNA (mRNA) from 14 high-risk HPV types (16,18,31,33,35,39,45,51,52,56,58,59,66,68). Cervical sources are required for HPV testing. If a vaginal source from a patient who has had a total hysterectomy with removal of cervix was submitted, please contact the testing laboratory for alternative testing options. For additional information, please refer to http://[email or web address].Evoleen/faq/RQY985p1 (This link if provided for information/ educational purposes only.) Cytology specimen container (physical object) 01/21/2023 9:43 AM EDT 01/22/2023 6:22 AM EDT Adeola MADERA LAB BLOOD ORDERABLES Jannet kim Result [address], [place] [address] [employer] [address] [place] [address] from Last 3 Months or Most Recently Relevant to Health Maintenance Insurance [id number] [address] [facility] , [address] [address] HSN PARTIAL [address] [address] DENTAL - HSN PARTIAL (MEDICAID) Care Teams Business Assistant Relationship Specialty Start Date End Date Tona Hayes MD [address] [place] [phone] PCP - General Family Medicine 08/19/12
== END 2025-07-05 13:30 | disposition home or self-care (01) ==
LOC: HO.HHCL 13:29
PROVIDERS: PCP Registered Nurse; Visit Provider Emergency Medicine
DX: Z13.89 Encounter for screening for other disorder (principal)

== ENCOUNTER 2025-07-06 12:40 | Outpatient (REF) | payer OTHER, SELFPAY ==
[2025-07-06 13:42] LABS: CDiff Gene PCR NEGATIVE (Negative)
[2025-07-06 14:40] LABS: E. coli EAEC Not Detected (Not Detect.); E. coli EPEC Not Detected (Not Detect.); E. coli ETEC Not Detected (Not Detect.); E. coli STEC Not Detected (Not Detect.); Shigella sp./EIEC Not Detected (Not Detect.)
== END 2025-07-06 12:41 | disposition home or self-care (01) ==
LOC: HO.HHCLNP 12:40
PROVIDERS: Visit Provider Emergency Medicine
DX: R19.7 Diarrhea, unspecified (principal)
CPT/HCPCS: 87177; 87209; 87338; 87493; 87507

== ENCOUNTER 2025-08-02 08:21 | Outpatient (REF) | payer OTHER, SELFPAY ==
--- OUTSIDE RECORDS SUMMARY | 2025-08-01 09:30 | XMS_ITS | Encounter Summary ---
Author Organization [employer] Address [address] [facility] 7t [place] [address] Care Team Providers Care Housecleaner Name Role Phone Maritza Chowdhury Primary Care Provider [phone] Encounter Details Date Type Department Care Team ([facility] Contact Info) Description 08/01/2025 9:30 AM EST Office Visit [facility] MED & PEDS [address] [place], [place] [phone] Maritza Chowdhury FNP [address] [place], [place] [phone] Benign hypertension (Primary Dx); Prediabetes; Gastroesophageal reflux disease without esophagitis; Healthcare maintenance; Obstructive sleep apnea; Tobacco dependence syndrome Social History Tobacco Use Types Packs/Day Years [...] Date Recorded Patient Health Questionnaire-9 Score 0 08/01/2025 Patient Health Questionnaire-9 Score 0 08/01/2025 Last PHQ-9: Questionnaire Data Not on file 1 10/01/2024 Housing Stability Answer Date Recorded What is your housing situation today? I have balwinder mclain 08/01/[address] you li ve. Do you have problems with any of the following? None of the above 08/01/2025 Food Insecurity Answer Date Recorded Within the past 12 months, y ou worried that your food would run out before you got money to buy more: Never True 08/01/2025 Within the past 12 months,th e food you bought just didn't last and you didn't have enough money to get more: Never True 11/2024 Transportation Answer Date Recorded In the past 12 months, has l ack of transportation kept you from medical appts, meetings, work or from getting things needed for daily living? No 08/01/2025 Utilities Answer Date Recorded In the past 12 months, has t he electric, gas, oil or water company threatened to shut off services in your home? No 08/01/2025 Depression Answer Date Recorded Patient Health Questionnaire-2 Score 0 08/01/2025 Internet Access Answer Date Recorded Internet Access Q1 Yes 08/01/2025 Internet Access Q2 Not on file 08/01/2025 Comments No Sex and Gender Information Value Date Recorded Sex Assigned at Female 07/29/2022 10:15 AM EDT Legal Sex Female 10:15 AM EDT Gender Identity Female 07/29/2022 10:15 AM EDT Sexual Orientation Straight 07/29/2022 10 :15 AM EDT documented as of this encounter Last Filed Vital Signs Vital Sign Reading Time Taken Comments Blood Pressure 120/70 08/01/2025 9:12 AM EST Pulse 80 08/01/2025 9:12 AM EST Temperature 37.1 C (98.7 F) 08/01/2025 9:12 AM EST Respiratory Rate 24 08/01/2025 9:12 AM EST Oxygen Saturation - - Inhaled Oxygen Concentration - - Weight 120 kg (265 lb) 08/01/2025 9:12 AM EST Height 160 cm (5' 3 ) 08/01/2025 9:12 AM EST Body Mass Index 46.94 08/01/2025 9:12 AM EST documented in this encounter Functional Status * Over the past 2 weeks, how often have you been bothered by any of the following problems? Question Answer Date of Assessment Author Patient Health Questionnaire -2 Score 0 08/01/2025 9:13 AM EST Nghia Ibrahim MA * Little interest or pleasure in doing things Answer Date of Assessment Author Not at all 08/01/2025 9:13 AM EST Korin Ibrahim MA * Feeling down, depressed, or hopeless Answer Date of Assessment Author Not at all 08/01/2025 9:13 AM Korin Fortune MA * Trouble falling or staying asleep, or sleeping too much Answer Date of Assessment Author Not at all 08/01/2025 9:13 AM Korin Fortune MA * Feeling tired or having little energy Answer Date of Assessment Author Not at all 08/01/2025 9:13 AM Korin Fortune MA * Poor appetite or overeating Answer Date of Assessment Author Not at all 08/01/2025 9:13 AM Korin Fortuen MA * Feeling bad about yourself - or that you are a failure or have let yourself or your family down Answer Date of Assessment Author Not at all 08/01/2025 9:13 AM Korin Fortune MA * Trouble concentrating on things, such as reading the newspaper or watching television Answer Date of Assessment Author Not at all 08/01/2025 9:13 AM Korin Fortune MA * Moving or speaking so slowly that other people could have noticed? Or the opposite - being so fidgety or restless that you have been moving around a lot more than usual. Answer Date of Assessment Author Not at all 08/01/2025 9:13 AM Korin Fortune MA * Thoughts that you would be better off or hurting yourself in some way Answer Date of Assessment Author Not at all 08/01/2025 9:13 AM Korin Fortune MA * Patient Health Questionnaire-9 Score Answer Date of Assessment Author 0 08/01/2025 9:13 AM Korin Fortune MA documented as of this encounter Miscellaneous Notes * Assessment & Plan Note - BILLY Garrido - 08/01/2025 10:07 AM EST Associated Problem(s): Tobacco dependence syndrome 6-8 cigg/day * Assessment & Plan Note - BILLY Garrido - 08/01/2025 6:10 AM ESTAssociated Problem(s): Gastroesophageal reflux disease - Continues with omeprazole 20mg BID (daily use) * Assessment & Plan Note - BILLY Garrido - 08/01/2025 6:09 AM ESTAssociated Problem(s): Hypertension - Cont telmisartan 20mg daily - Cont triamterene-hydrochlorothiazide 37.5-25mg daily documented in this encounter Plan of Treatment Upcoming Encounters Date Type Department Care Team (Late st Contact Info) Description 09/07/2025 3:00 PM EST Office Visit [facility] OPTOMETRY [address] [place], [place] [phone] EliecerNabila, OD [address] [place] [address] Scheduled Orders Name Type Priority Associated Diagnoses Orde r Schedule Albumin, Random Urine W/Creatinine Lab Routine Healthcare maintenance Expected: 08/01/2025 (Approximate), Expires: 08/01/2026 Lipid Panel, Standard Lab Routine Healthcare maintenance Expected: 08/01/2025 (Approximate), Expires: 08/01/2026 TSH with Reflex to Free T4 Lab Routine Healthcare maintenance Expected: 08/01/2025 (Approximate), Expires: 08/01/2026 Comprehensive Metabolic Panel Lab Routine Healthcare maintenance Expected: 08/01/2025 (Approximate), Expires: 08/01/2026 CBC auto differential Lab Routine Healthcare maintenance Expected: 08/01/2025, Expires: 08/01/2026 Hepatitis C Viral RNA, Quantitative, Real-Time PCR Lab Routine Healthcare maintenance Expected: 08/01/2025 (Approximate), Expires: 08/01/2026 RPR (Monitor) with Reflex to Titer Lab Routine Healthcare maintenance Expected: 08/01/2025 (Approximate), Expires: 08/01/2026 HIV-1/2 Antigen and Antibodies, Fourth Generation, with Reflexes Lab Routine Healthcare maintenance Expected: 08/01/2025 (Approximate), Expires: 08/01/2026 Chlamydia/Trichomonas/Neis seria gonorrhoeae, PCR, Urine Lab Routine Healthcare maintenance Expected: 08/01/2025 (Approximate), Expires: 08/01/2026 Vitamin D, 25-Hydroxy, Total, Immunoassay Lab Routine Healthcare maintenance Expected: 08/01/2025 (Approximate), Expires: 08/01/2026 documented as of this encounter Procedures Procedure Name Priority Date/Time Associated Diagnosis Comments POCT GLYCATED HEMOGLOBIN, TOTAL Routine 08/01/2025 9:50 AM EST Prediabetes POCT GLUCOSE Routine 08/01/2025 9:49 AM EST Prediabetes documented in this encounter Results * (ABNORMAL) POCT Hgb A1c (08/01/2025 9:50 AM EST) Hemoglobin A1C 5.9(A) 4.0 - 5.7 % QC [employer] Lot # [id number] Lot# Expiration Date [id number] Blood 08/01/2025 9:50 AM EST us Maritza Chowdhury [facility] POINT OF CARE TEST ENTER/EDIT ORDERABLES Final Result * POCT Glucose (08/01/2025 9:49 AM EST) Glucose Blood, POC 128 60 - 200 mg/dL Shock Treatment Management Lot # [id number] Lot# Expiration Date [id number] Blood Capillary blood specimen / Unknown 08/01/2025 9:49 AM EST us Salas [employer] DECORATOR POINT OF CARE TEST ENTER/EDIT ORDERABLES Final Result documented in this encounter Visit Diagnoses Diagnosis Benign hypertension- Primary Essential hypertension, benign Prediabetes Other abnormal glucose Gastroesophageal reflux disease without esophagitis Esophageal reflux Healthcare maintenance Obstructive sleep apnea Obstructive sleep apnea (adult) (pediatric) Tobacco dependence syndrome Tobacco use disorder documented in this encounter Additional Health Concerns Assessment Noted Time PHQ-9 Depression Total Score: 0 08/01/20 25 9:13 AM EST documented as of this encounter Care Teams Housecleaner Relationship Specialty Start Date End Date Maritza Chowdhury FNP [address] [place] [address] PCP - General Family Medicine 07/28/25 documented as of this encounter
--- OUTSIDE RECORDS SUMMARY | 2025-08-02 08:40 | XMS_ITS | Encounter Summary ---
Author Organization [employer] Address [address] [facility] 7t [place] [address] Care Team Providers Care Blocker And Sewer Name Role Phone Tona Hayes MD Primary Care Provider [phone] Maritza Chowdhury Primary Care Provider [phone] Encounter Details Date Type Department Care Team (Late Contact Info) Description 03/28/2023 Orders Only [facility] [address] [place] [address] Sanjiv Paez MD [address] [place] [address] Social History Tobacco Use Types Packs/Day Years [...] Description 09/07/2025 3:00 PM EST Office Visit [facility] OPTOMETRY [address] [place], [place] [phone] Nabila Gonzáles, BREN [address] [place] [address] documented as of this encounter Visit Diagnoses Not on filedocumented in this encounter Care Teams Blocker And Sewer Relationship Specialty Start Date End Date Tona Hayes MD [address] [place] [address] PCP - General Family Medicine 08/19/12 07/27/25 Maritza Chowdhury FNP [address] [place] [address] PCP - General Family Medicine 07/28/25 documented as of this encounter
--- OUTSIDE RECORDS SUMMARY | 2025-08-02 08:40 | XMS_ITS | Encounter Summary ---
Author Organization [employer] Address [address] [facility] 7t [place] [address] Care Team Providers Care Nurse Healthcare Manager Name Role Phone Tona Hayes MD Primary Care Provider [phone] Maritza Chowdhury Primary Care Provider [phone] Encounter Details Date Type Department Care Team ([facility] Contact Info) Description 06/13/2025 Results Follow-Up [facility] MED [facility] PEDS [address] [place], [place] [phone] Tona Hayes MD [address] [place] [address] BI Mammogram Diagnostic Left Social History Tobacco [...] the past 12 months, has t he [employer], gas, oil or water company threatened to [...] Description 09/07/2025 3:00 PM EST Office Visit [facility] OPTOMETRY [address] [place] [address] Eliecer, Nabila, OD [address] [place] [address] documented as of this encounter Visit Diagnoses Not on filedocumented in this encounter Additional Health Concerns Assessment Noted Time PHQ-9 Depression Total Score: 0 04/15/20 24 9:20 AM EDT documented as of this encounter Care Teams Nurse Healthcare Manager Relationship Specialty Start Date End Date Tona Hayes MD [address] [place] [address] PCP - General Family Medicine 08/19/12 07/27/25 Maritza Chowdhury FNP [address] [facility] [place] [address] PCP - General Family Medicine 07/28/25 documented as of this encounter
--- OUTSIDE RECORDS SUMMARY | 2025-08-02 08:40 | XMS_ITS | Encounter Summary ---
Author Organization [employer] Address [address] 7t [place] [address] Care Team Providers Care School Speech Language Pathologist Name Role Phone Maritza Chowdhury BILLY Primary Care Provider [phone] Encounter Details Date Type Department Care Team (Latest Contact Info) Description 08/01/2025 Travel Social History Tobacco Use Types Packs/Day Years [...] AM EDT documented as of this encounter Functional Status * Over the past 2 weeks, how often have you been bothered by any of the following problems? Question Answer Date of Assessment Author Patient Health Questionnaire -2 Score 0 08/01/2025 9:13 AM Nghia Fortune MA * Little interest or pleasure in doing things Answer Date of Assessment Author Not at all 08/01/2025 9:13 AM Korin [place] MA * Feeling down, depressed, or hopeless [...] 9:13 AM Korin [place] MA * Feeling bad about yourself - [...] Fortune [place] documented as of this encounter Plan of Treatment Upcoming Encounters Date Type Department Care Team (Late st Contact Info) Description 09/07/2025 3:00 PM EST Office Visit [facility] OPTOMETRY [address] [place] [address] EliecerKareemn, OD [address] [place] [address] documented as of this encounter Visit Diagnoses Not on filedocumented in this encounter Additional Health Concerns Assessment Noted Time PHQ-9 Depression Total Score: 0 08/01/20 9:13 AM EST documented as of this encounter Care Teams School Speech Language Pathologist Relationship Specialty Start Date End Date Maritza Chowdhury FNP [address] [place] [address] PCP - General Family Medicine 07/28/25 documented as of this encounter
--- OUTSIDE RECORDS SUMMARY | 2025-08-02 08:40 | XMS_ITS | Encounter Summary ---
Author Organization [employer] Address [address] [facility] [address] 7[address] [place] [address] Care Team Providers Care Drafter Detail Name Role Phone Tona Hayes MD Primary Care Provider Maritza Chowdhury Primary Care Provider [phone] Encounter Details Date Type Department Care Team ([facility] Contact Info) Description 05/27/[address] [facility] [address] [place], [place] [phone] Sanjiv Paez MD [address] [place] [address] Social History Tobacco Use Types Packs/Day Years [...] Upcoming Encounters Date Type Department Care Team ([facility] Contact Info) Description 09/07/2025 3:[address] PM EST Office [address] [facility] OPTOMETRY [address] [place], [place] [phone] Nabila Gonzáles, OD [address] [place] [address] documented as of this encounter Visit Diagnoses Not on filedocumented in this encounter Additional Health Concerns Assessment Noted Time PHQ-9 Depression Total Score: 0 04/07/20 23 9:14 AM EDT documented as of this encounter Care Teams Drafter Detail Relationship Specialty Start Date End Date Tona Hayes MD [address] [place] [address] PCP - General Family Medicine 08/19/12 07/27/25 Maritza Chowdhury FNP [address] [place] [address] PCP - General Family Medicine 07/28/25 documented as of this encounter
--- OUTSIDE RECORDS SUMMARY | 2025-08-02 08:40 | XMS_ITS | Encounter Summary ---
Author Organization [employer] Address [address] [facility] 7t [place] [address] Care Team Providers Care Cathode Washer Name Role Phone Tona Hayes MD Primary Care Provider [phone] Maritza Chowdhury Primary Care Provider Reason for Visit * Reason Comments Med Refill Encounter Details Date Type Department Care Team (Late Contact Info) Description 09/02/2022 Refill [facility] [address] [place] [address] Tona Hayes MD [address] [place] [address] Social History Tobacco Use Types Packs/Day Years [...] 3:00 PM EST Office Visit [facility] OPTOMETRY [address] [place] [address] EliecerNabila donald, OD [address] [place] [address] documented as of this encounter Visit Diagnoses Not on filedocumented in this encounter Care Teams Cathode Washer Relationship Specialty Start Date End Date Tona Hayes MD [address] [place] [address] PCP - General Family Medicine 08/19/12 07/27/25 Maritza Chowdhury FNP [address] [place] [address] PCP - General Family Medicine 07/28/25 documented as of this encounter
--- OUTSIDE RECORDS SUMMARY | 2025-08-02 08:40 | XMS_ITS | Encounter Summary ---
Author Organization [employer] Address [address] [facility] 7t [place] [address] Care Team Providers Care Financial Manager Name Role Phone Maritza Chowdhury Primary Care Provider [phone] Reason for Visit * Reason Onset Date Comments Chart Prep 07/29/2025 Encounter Details Date Type Department Care Team ([facility] Contact Info) Description 07/29/2025 Telephone [facility] MED [facility] PEDS [address] [place], [place] [phone] Maritza Chowdhury FNP [address] [place] [address] Chart Prep Social History Tobacco Use Types Packs/Day Years [...] encounter Miscellaneous Notes * Telephone Encounter - Miryam Figueredo MA - 07/29/2025 2:29 PM EDT Chart Prep Labs: done Images: not done, appointment on 09/02 Referrals: appointment pending Vaccines due: Covid and PCV20 Screenings: STI screening and LMP Overdue care gaps: SBIRT, SDOH, PHQ-9, Disability screen, and Tobacco documented in this encounter Plan of Treatment Upcoming Encounters Date Type Department Care Team (Late st Contact Info) Description 09/07/2025 3:00 PM EST Office Visit [facility] OPTOMETRY [address] [place] [address] Nabila Gonzáles, OD [address] [place] [address] documented as of this encounter Visit Diagnoses Not on filedocumented in this encounter Additional Health Concerns Assessment Noted Time PHQ-9 Depression Total Score: 0 04/15/20 24 9:20 AM EDT documented as of this encounter Care Teams Financial Manager Relationship Specialty Start Date End Date Maritza Chowdhury FNP [address] [place] [address] PCP - General Family Medicine 07/28/25 documented as of this encounter
--- OUTSIDE RECORDS SUMMARY | 2025-08-02 08:40 | XMS_ITS | Clinical Summary ---
Author Organization [employer] Address [address] [facility] [address] [place] [address] Care Team Providers Care Patient Care Secretary Name Role Phone Maritza Chowdhury BILLY Primary Care Provider [phone] Allergies Active Allergy Reactions Criticality Noted Date [...] or chew. 90 capsule 3 5 Active silver sulfADIAZINE (Silvadene) 1 % cream Apply topically 2 times daily. 50 g 5 01/29/20 26 Active Active Problems Problem Noted Date Diagnosed Date Bilateral carpal tunnel syndrome 08/01/2025 Breast calcification, right 08/01/2025 Healthcare maintenance 08/01/2025 Overview (08/01/2025): Mammo: 06/14/2025 Bi-RADS 3, repeat 6 mo Pap: NIL/HPV 12/2023 Obstructive sleep apnea 10/07/2024 Overview (08/01/2025): 09/16/24 -sleep study revealed a severe degree of obstructive sleep apnea. Following with [facility] Prediabetes 10/07/2024 Overview (08/01/2025): Lab Results Component Value Date HGBA1C 5.9 (A) 08/01/2025 HGBA1C 5.8 04/15/2024 HGBA1C 5.7 04/14/2023 HGBA1C [...] with routine physical activity and reviewed nutrition Gastroesophageal reflux disease 11/23/2014 Assessment & Plan (08/01/2025 10:01 AM EST): - Continues with omeprazole 20mg BID (daily use) Hypertension 08/19/2012 Assessment & Plan (08/01/2025 6:09 AM EST): - Cont telmisartan 20mg daily - Cont triamterene-hydrochlorothiazide 37.5-25mg daily Assessment & Plan (10/07/2024 3:12 PM EST): - Elevated in office, although reports has not taken blood pressure medications yet - Continue current therapy - Follow-up if home blood pressure readings are elevated -Smoking cessation advised Tobacco dependence syndrome 08/19/2012 Assessment & Plan (08/01/2025 10:07 AM EST): 6-8 cigg/day Anxiety 08/19/2012 Resolved Problems Problem Noted Date Diagnosed Date Resolved Date Partially edentulous maxilla 04/02/2023 08/01/2025 Encounters Date Type Department Care Team Description 08/01/2025 9:30 AM EST Office Visit [facility] [address] [place] [address] Maritza Chowdhury FNP Benign hypertension (Primary Dx); Prediabetes; Gastroesophageal reflux disease without esophagitis; Healthcare maintenance; Obstructive sleep apnea; Tobacco dependence syndrome 08/01/2025 Travel 07/29/2025 Telephone [facility] [address] [place] [address] Maritza Chowdhury FNP Chart Prep 07/25/2025 Patient Outreach [facility] [address] [place] [phone] Tona Hayes MD Pre-visit Planning (Pre visit planning LVM ) 07/08/2025 11:00 AM EDT Immunization [address] [address] Inna Lazcano RN Encounter for immunization 07/08/2025 Travel 07/06/2025 Orders Only [facility] [address] [place] [phone] Sanjiv Paez MD 07/05/2025 Orders Only [facility] [address] [place] [phone] Sanjiv Paez MD Upper abdominal discomfort (Primary Dx); Diarrhea, unspecified type 06/13/2025 Results Follow-Up [facility] [address] [place] [address] Tona Hayes MD BI Mammogram Diagnostic Left 06/13/2025 Orders Only [facility] [address] [place] [address] Tona Hayes MD from Last 3 Months Immunizations Immunization Administration Dates Next Due HepB-CpG 07/04/2023,06/03/2023 Influenza Injectable Quadriv alant Preservative Free IIV4 MDCK 06/19/2023,06/13/2022,06/14/2021,2019 Influenza injectable quadriv alent IIV4 with preservative 06/09/2019,06/10/2018 Influenza, IIV3, injectable 06/10/2012 Influenza, seasonal, injecta ble, preservative free 07/08/2025,06/10/2024 Pfizer Covid-19 Vaccine 12+ 06/27/2023 Pfizer Covid-19 Vaccine 12+ Bivalent 08/30/2022 TD (adult), 2 Lf tetanus tox oid, preservative free, adsorbed 06/28/2008 Tdap 10/30/2021,10/29/2011 Zoster, Recombinant 08/05/2023,06/03/2023 Family History Medical History Relation Name Comments history of diabetes Brother Breast cancer Father's Sister Diabetes Mother Stomach cancer Mother's Brother Lung cancer Mother's Sister Relation Name Status Comments Brother Father's Sister Mother Mother's Brother Mother's Sister Social History Tobacco Use Types [...] 24 08/01/2025 9:12 AM EST Oxygen Saturation 98% 12/27/2024 9:14 AM EDT Inhaled Oxygen Concentration - - Weight 120 kg (265 lb) 08/01/2025 9:12 AM EST Height 160 cm (5' 3 ) 08/01/2025 9:12 AM EST Body Mass Index 46.94 08/01/2025 9:12 AM EST Plan of Treatment Upcoming Encounters Date Type Department Care Team (Late st Contact Info) Description 09/07/2025 3:00 PM EST Office Visit [facility] [address] [place] [address] Eliecer, Nabila, OD [address] [place] [address] Health Maintenance Due Date Last Done Comments CT Colonography 1972 FIT DNA/Cologuard 1972 FIT 1972 FOBT 1972 HIV Screening 1972 Sigmoidoscopy 1972 Hepatitis C Screening 1990 Pneumococcal Vaccine: 50+ Years (1 of 2 - PCV) 1991 Dental Prophylaxis 03/05/2014 09/03/2013 Dental Oral Exam 04/22/2014 10/22/2013, 07/10/2012 Dental X-Ray: Bitewings 09/04/2014 09/03/2013, 05/19 Dental X-Ray: Full Mouth 05/20/2015 05/19/2012 COVID-19 Vaccine ( season) 2025 06/27/2023, 08/30/2022, 08/17/2021, Additional history exists Diagnostic Breast Imaging 12/11/2025 06/13/2025, Alcohol/Substance Use Screening 08/01/2026 08/01/2025 Depression Screening 08/01/2026 08/01/2025, 08/01/20 Diabetes: Hemoglobin A1C 08/01/2026 025, 04/15/2024, 04/14/2023, Additional history exists Disability Screening 08/01/2026 08/01/2025 SDOH Screening 08/01/2026 08/01/2025 Tobacco Screening 08/01/2026 08/01/2025 Cervical Cancer Screening 01/22/2028 HPV/Cotest 01/22/2028 01/21/2023, [...] Vaccines Completed 08/05/2023, 06/03/2023 Influenza Vaccine Completed 07/08/2025, , 06/19/2023, Additional history exists HIB Vaccines Aged Out [...] GLUCOSE Routine 08/01/2025 9:49 AM EST Prediabetes CDIFF GENE PCR Routine 07/06/2025 7:00 AM EDT HELICOBACTER PYLORI AG, EIA, STOOL Routine 07/06/2025 7:00 AM EDT Diarrhea, unspecified type OVA AND PARASITES, CONC AND PERM SMEAR Routine 07/06/2025 7:00 AM EDT Diarrhea, unspecified type GASTROINTESTINAL PANEL Routine 7:00 AM EDT Diarrhea, unspecified type BI MAMMOGRAM DIAGNOSTIC LEFT Routine 06/13/2025 8:35 AM EDT LIPID PANEL, STANDARD Routine 04/15/2024 12:00 AM [...] Recently Relevant to Health Maintenance Results * (ABNORMAL) POCT Hgb A1c (08/01/2025 9:50 AM EST) [facility] Hemoglobin A1C 5.9(A) 4.0 - 5.7 % QC Media Lot # [id number] Lot# Expiration Date [id number] Blood 08/01/2025 9:50 AM EST Maritza Chowdhury TELEMARKETING SUPERVISOR POINT OF CARE TEST ENTER/EDIT ORDERABLES Final Result * POCT Glucose (08/01/2025 9:49 AM EST) [facility] Glucose Blood, POC 128 60 - 200 mg/dL QC Media Lot # [id number] Lot# Expiration Date 2,826 Blood Capillary blood specimen / Unknown 08/01/2025 9:49 AM EST Maritza Chowdhury TELEMARKETING SUPERVISOR POINT OF CARE TEST ENTER/EDIT ORDERABLES Final Result * CDiff Gene PCR (07/06/2025 7:00 AM EDT) [facility] CDiff Gene PCR NEGATIVE Negative [facility] Comment:If C. difficile stro ngly suspected despite one negativetest, a second test may be sent vs. empiric treatment forC. difficile infection. 07/06/2025 7:00 AM EDT 07/06/2025 12:41 PM EDT Sanjiv Paez MD LAB BODY FLUIDS AND STOOLS ORDER LIZBETH Final Result [facility] [address], [place] [phone] * Gastrointestinal panel (07/06/2025 7:00 AM EDT) [facility] Campylobacter Not Detected Not Detect. [facility] Plesiomonas shigelloides Not Detected Not Detect. [facility] Salmonella Not Detected Not Detect. [facility] Vibrio Not Detected Not Detect. [facility] Vibrio cholerae Not Detected Not Detect. [facility] YERSINIA ENTEROCOLITICA Not Detected Not Detect. [facility] Enteroaggregative E. coli (EAEC) Not Detected Not Detect. [facility] Enteropathogenic E. coli (EPEC) Not Detected Not Detect. [facility] Enterotoxigenic E. coli (ETEC) lt/st Not Detected Not Detect. [facility] Shiga-like toxin-producing E. coli (STEC) stx1/stx2 Not Detected Not Detect. [facility] E coli O157 Not applicable Not Detect. [facility] Comment:E. coli containing t he O157 antigen are a subset ofShiga-like toxin- producing E. coli (STEC). Shigella/Enteroinvasive E. coli (EIEC) Not Detected Not Detect. [facility] Cryptosporidium Not Detected Not Detect. [facility] Cyclospora cayetanensis Not Detected Not Detect. [facility] Entamoeba histolytica Not Detected Not Detect. [facility] Giardia lamblia Not Detected Not Detect. [facility] Adenovirus F 40/41 Not Detected Not Detect. [facility] Astrovirus Not Detected Not Detect. [facility] Norovirus GI/GII Not Detected Not Detect. [facility] Rotavirus A Not Detected Not Detect. [facility] Sapovirus Not Detected Not Detect. [facility] Comment: All results must be correlated with clinical findings.Negative results do not exclude the possibility ofgastrointestinal infection and should not be used as thesole basis for diagnosis, treatment, or other managementdecisions. Virus, bacteria, and parasite nucleic acid maypersist in vivo independently of organism viability.Additionally, some organisms may be carriedasymptomatically.Detection of organism targets does not imply that thecorresponding organisms are infectious or are the causativeagents for clinical symptoms. There is a risk of falsenegative values due to the presence of sequence variants inthe gene targets of the assay, amplification inhibitors inspecimens, or inadequate numbers of organisms foramplification.The identification of several diarrheagenic E. colipathotypes has historically relied upon phenotypiccharacteristics. This panel targets genetic determinantscharacteristic of most pathogenic strains, but may notdetect all strains having phenotypic characteristics of apathotype.The performance of this test has not been established formonitoring treatment of infection with any of the panelorganisms.This assay is performed by Multiplexed PCR, utilizing [employer] Film Array. Stool Rectal contents / Unknown 07/06/2025 7:00 AM EDT 07/06/2025 12:42 PM EDT us Sanjiv Paez MD LAB MICROBIOLOGY - GENERAL ORDER LIZBETH Final Result Performing Organization Address [facility] Co de Phone Number [facility] [address] [place] [phone] * Ova and Parasites,??Concentrate and Permanent Smear (07/06/2025 7:00 AM EDT) Ova and Parasite Trichrome SEE NOTE [facility] Comment: OVA AND PARASITES, CONC AND PERM SMEAR Micro Number: [id number] Test Status: Final Specimen Source: Stool Specimen Quality: Adequate CONCENTRATION 1: No ova or parasites seen TRICHROME 1: No ova or parasites seen Routine Ova and Parasite exam may not detect some parasites that occasionally cause diarrheal illness. Cryptosporidium Antigen and/or Cyclospora and Isospora Exam may be ordered to detect these parasites. One negative sample does not necessarily rule out the presence of a parasitic infection. For additional information, please refer to https://education.[employer].Comviva/faq/PCL561 (This link is being provided for informational/ educational purposes only.)THIS TEST WAS PERFORMED AT:[facility] [id number] [place] [id number] JUDSON,MD Stool Rectal contents / Unknown 07/06/2025 7:00 AM EDT 07/06/2025 12:42 PM EDT us Sanjiv Paez MD LAB MICROBIOLOGY - GENERAL ORDER LIZBETH Final Result Performing Organization Address [facility]/ZIP Co de Phone Number [facility] [address] [place] [phone] * Helicobacter pylori??Antigen, EIA, Stool (07/06/2025 7:00 AM EDT) H pylori Ag Stool SEE NOTE [facility] Comment:HELICOBACTER PYLORI AG, EIA, STOOL Micro Number: [id number] Test Status: Final Specimen Source: Stool Specimen Quality: Adequate H.pylori Ag: Not Detected Antimicrobials, proton pump inhibitors, and bismuth preparations inhibit H. pylori and ingestion up to two weeks prior to testing may cause false negative results. If clinically indicated the test should be repeated on a new specimen obtained two weeks after discontinuing treatment. Reference Range: Not DetectedTHIS TEST WAS PERFORMED AT:[facility] [place] [phone] LUGO MD Stool Rectal contents / Unknown 07/06/2025 7:00 AM EDT 07/06/2025 12:42 PM EDT Sanjiv Paez MD LAB BODY FLUIDS AND STOOLS ORDER LIZBETH Final Result [facility] [address] [place] [address] [phone] * BI Mammogram Diagnostic Left (06/13/2025 8:35 AM EDT) Anatomical Region Laterality Modality Breast Left Mammography 06/13/2025 8:35 AM EDT Narrative 06/13/2025 9:35 AM EDT [facility] [address] [place] [address] Mammography Report Signed Patient: Chanel Ibrahim MR#: [id number] : 1970 Acct:[id number] Age/Sex: 55 / F ADM Date: 06/13/25 Loc: [place] Attending Dr: Tona Hayes MD Ordering Physician: Tona Hayes MD Results: 3.6MPro bably Benign Finding - Short 6 M F/U Suggested Date of Service: 06/13/25 Follow Up: 6 Month F/U Procedure(s): MM diagnostic mammo unilat LT Accession Number(s): [id number] cc: Tona Hayes MD Reason For Exam: [...] 06/13/25 0932 DD/ 0835 TD/TT: 06/13/25 0920 Restaurant Maintenance Technician: Procedure Note Donotuseinterpreter, Image - 06/13/2025 [place] [facility] [address] [place] [address] Mammography Report Signed Patient: Francisco J Ibrahim#: [id number] : 1970Acct:[id number] Age/Sex: 55 / FADM Date: 06/13/25 Loc: [facility].MAMMO Attending Dr: Tona Hayes MD Ordering Physician: Tona Hayes MDResults: 3.6MPro bably Benign Finding - Short 6 M F/U Suggested Date of Service: 06/13/25Follow Up: 6 Month F/U Procedure(s): MM diagnostic mammo unilat LT Accession Number(s): [id number] cc: Tona Hayes MD Reason For Exam: [...] in OV> 06/13/25931 DD/ 4 TD/TT: 06/13/25919 Restaurant Maintenance Technician: Tona Hayes MD IMG BI PROCEDURES Edited Result - Final * (ABNORMAL) Lipid Panel, Standard (04/15/2024 12:00 AM EDT) Triglycerides 156(H) <150 mg/dL [facility] Comment:Desirable Triglyceri de: less than 150 mg/dLBorderline High Triglyceride 150-199 mg/dLHigh Triglyceride: 200-499 mg/dLVery High Triglyceride: greater than or equal to 5OO mg/dL Cholesterol 183 <200 mg/dL [facility] Comment:Desirable Cholestero l: less than 200 mg/dLBorderline High Cholesterol: 200-239 mg/dLHigh Cholesterol: greater than 239 mg/dL LDL Cholesterol Calculated 117(H) <100 mg/dL [facility] Comment:Desirable LDL: less than 100 mg/dLNear Optimal/Above Optimal LDL: 110- 129 mg/dLBorderline High LDL: 130-159 mg/dLHigh LDL: 160-189 mg/dLVery High LDL: greater than or equal to 190 mg/dL HDL Cholesterol 35(L) >40 mg/dL [facility] Comment:Desirable HDL: great er than 40 mg/dL Note: This HDL assay may give artificially low results in patients with liver disease. Blood Venous blood specimen / Unknown 04/15/2024 04/15/2024 us Tona Hayes MD LAB BLOOD ORDERABLES Final Resul t [facility] [address] [place] [phone] * Image-Guided Pap with Age-Based Screening Protocols (01/21/2023 9:43 AM EDT) Comment [facility] Comment: This order for age-based cervical cancer and STI screening follows ACOG guidelines(PB 168, 140, ZMZ324). See individual assays for performing site location. Clinical Information: None given [facility] LMP: NONE GIVEN [facility] Prev. PAP: NONE GIVEN [facility] Prev. BX: NONE GIVEN [facility] SOURCE: None given [facility] Statement Of Adequacy: [place] [facility] [place] Comment: Satisfactory for evaluation. Endocervical/transformation zone component present. Interpretation/ Result: Negative for intraepithelial lesion or malignancy. [employer] [facility] [place] COMMENT: This Pap test has been evaluated with computer assisted technology. [employer] [facility] [place] Cytotechnologis t: [employer] [facility] [place] Comment: SXA, CT(ASCP) CT screening location: [place] [address] (Always Message) [employer] [facility] [facility] [place] Comment: EXPLANATORY NOTE: The Pap is a [...] HPV nRNA E6/E7 Not Detected Not Detected [facility] [facility] [place] Comment: Methodology: Iron Caster-Mediated Amplification This assay detects E6/E7 viral messenger RNA (mRNA) from 14 high-risk HPV types (16,18,31,33,35,39,45,51,52,56,58,59,66,68). Cervical sources are required for HPV testing. If a vaginal source from a patient who has had a total hysterectomy with removal of cervix was submitted, please contact the testing laboratory for alternative testing options. For additional information, please refer to http://education.Ewirelessgear/faq/BQM768t3 (This link if provided for information/ educational purposes only.) Cytology specimen container (physical object) 01/21/2023 9:43 AM EDT 01/22/2023 6:22 AM EDT Adeola MADERA LAB BLOOD ORDERABLES Jannet l Result [address], [place] [phone] [employer] [facility] [employer] [place] [address] [place] [phone] from Last 3 Months or Most Recently Relevant to Health Maintenance Insurance [id number] [id number] [facility] , [address] [place] [id number] DENTAL - HSN PARTIAL (MEDICAID) Care Teams Patient Care Secretary Relationship Specialty Start Date End Date Maritza Chowdhury FNP [address] [place] [phone] PCP - General Family Medicine 07/28/25
--- OUTSIDE RECORDS SUMMARY | 2025-08-02 08:40 | XMS_ITS | Encounter Summary ---
Author Organization [employer] Address [address] [facility] [address] [place] [address] Care Team Providers Care Business Development Associate Name Role Phone Tona Hayes MD Primary Care Provider [phone] Maritza Chowdhury Primary Care Provider [phone] Encounter Details Date Type Department Care Team (Late Contact Info) Description 11/13/2022 Orders Only [facility] [address] [place], [place] [phone] Sanjiv Paez MD [address] [place] [address] Nasal congestion (Primary Dx) Social History Tobacco [...] 3:00 PM EST Office Visit [facility] [address] [place], [place] [phone] Nabila Gonzáles, OD [address] [place] [address] documented as of this encounter Visit Diagnoses Diagnosis Nasal congestion- Primary Other diseases of nasal cavity and sinuses documented in this encounter Care Teams Business Development Associate Relationship Specialty Start Date End Date Tona Hayes MD [address] [place] [phone] PCP - General Family Medicine 08/19/12 07/27/25 Maritza Chowdhury FNP [address] [place] [phone] PCP - General Family Medicine 07/28/25 documented as of this encounter
[2025-08-02 12:02] LABS: MANUAL DIFF FLAG NO
[2025-08-02 12:23] LABS: Hematocrit 39.6 % (37.0-47.0); Hemoglobin 12.4 g/dl (12.0-16.0); Imm Gran Abs Auto 0.04 X10*3/uL (0.00-0.03); Imm Gran Pct Auto 0.4 % (0.0-0.4); Lymphocytes Absolute Auto 1.9 X10*3/uL (1.2-4.9); Mean Corpuscular HGB Conc 31.3 g/dl (31.0-35.0); Mean Corpuscular Hemoglobin 27.1 pg (27.0-33.0); Mean Corpuscular Volume 86.7 fL (80.0-98.0); NRBC Abs Auto 0.000 X10*3/uL (0.0-0.012); NRBC Pct Auto 0.0 /100WBC (0.0-0.2); Platelet Count 353 X10*3/uL (160-400); Red Blood Count 4.57 X10*6/uL (4.20-5.50); White Blood Count 10.4 X10*3/uL (4.8-10.8)
[2025-08-02 12:41] LABS: Alanine Aminotransferase 35 U/L (0-31); Albumin Level 4.2 g/dL (3.5-5.0); Alkaline Phosphatase 94 U/L (39-117); Anion Gap 11 (12-20); Aspartate Amino Transferase 31 U/L (5-31); Blood Urea Nitrogen 14 mg/dL (9-16); Calcium 8.9 mg/dL (8.4-10.2); Carbon Dioxide 29 mmol/L (22-29); Chloride 105 mmol/L (96-108); Cholesterol 182 mg/dL (<200); Estimated Glomerular Filt Rate > 60; HDL Cholesterol 33 mg/dL (>40); Potassium 4.3 mmol/L (3.3-5.1); Sodium 141 mmol/L (135-145); Total Protein 7.6 g/dL (6.5-8.0); Triglycerides 155 mg/dL (<150)
[2025-08-02 12:55] LABS: HIV Num 1 0.06 S/CO (0.00-0.99)
[2025-08-02 16:49] LABS: Microalbum/Creatinine Ratio Ur 20.8 ug/mg cr (<30)
[2025-08-03 00:52] LABS: CT PCR Urine NOT DETECTED (Not Detect.); NG PCR Urine NOT DETECTED (Not Detect.)
[2025-08-04 06:08] LABS: HCV Log PCR <1.18 NOT DETECTED Log IU/mL (NOT DETECTED); HepC Viral Load <15 NOT DETECTED IU/mL (NOT DETECTED)
== END 2025-08-02 08:22 | disposition home or self-care (01) ==
LOC: HO.HHCL 08:21
PROVIDERS: PCP Registered Nurse; Visit Provider Registered Nurse
DX: Z00.00 Encounter for general adult medical examination without abnormal findings (principal); Z11.4 Encounter for screening for human immunodeficiency virus [HIV]; Z11.59 Encounter for screening for other viral diseases; Z13.6 Encounter for screening for cardiovascular disorders; Z13.29 Encounter for screening for other suspected endocrine disorder; Z20.2 Contact with and (suspected) exposure to infections with a predominantly sexual mode of transmission
CPT/HCPCS: 80053; 80061; 82043; 82306; 82570; 84443; 85025; 86592; 87389; 87491; 87522; 87591